=== PATIENT | female | born 1990 | race Caucasian/White ===

== ENCOUNTER 2020-07-08 00:42 | Outpatient (CLI) | payer OTHER, SELFPAY ==
[2020-07-08 18:38] LABS: SARS-CoV-2 RNA PCR Negative
== END 2020-07-08 00:43 | disposition home or self-care (01) ==
LOC: ANHCOVIDDT 00:43
PROVIDERS: PCP Internal Medicine; Visit Provider Obstetrics & Gynecology
DX: Z01.812 Encounter for preprocedural laboratory examination (principal); Z20.822 Contact with and (suspected) exposure to COVID-19
CPT/HCPCS: C9803; U0003

== ENCOUNTER 2020-07-11 01:06 | Day surgery (SDC) | payer OTHER, SELFPAY ==
[2020-06-28 16:03] VITALS: BMI 26.8
[2020-07-11] VITALS (9 sets, daily range): BP systolic 93–123; BP diastolic 60–80; PULSE 55–80; RESP 14–16; TEMP 36.1–36.6; O2SAT 97–100; BMI 27.4
--- NOTE | 2020-07-11 13:10 | WPDANESEPPF ---
Anes - Initial Pre Proc Eval Procedure: Operation Date: 07/11/20 13:30 Proposed Procedures p Diagnostic Laparoscopy - Concepcion Meza MD Date/Time: 07/11/20 13:10 Surgeon: Concepcion Meza MD Pre Op Diagnosis: pelvic and perineal pain Patient Data Age: 29 Gender: F Height: 5 ft 8 in Weight: 81.8 kg Allergies Allergy/AdvReac Type Severity Reaction Status Date / Time amoxicillin Allergy Unknown face swells Verified 07/11/20 12:54 Penicillins Allergy Unknown face swells Verified 07/11/20 12:54 Home Medications Medication Instructions Recorded Confirmed Type No Home Medications 06/28/20 07/11/20 History Patient hx anesthesia problems: none Family hx anesthesia problems: none [facility] Past Medical History Medical History (Updated 07/11/20 @ 13:10 by Andrea Garcia MD) Overweight Surgical History Surgical History (Updated 07/11/20 @ 13:10 by Andrea Garcia MD) H/O arthroscopic knee surgery Social History Social History Smoking packs per day: 0.5 Smoking cigarettes per day: 10.0 Years smoked: 16 Smoking pack-years: 8.00 Alcohol intake: former Alcohol use details: SOCIAL DRINKER IN PAST Substance use: current Substance use type: marijuana Other substance usage details: SMOKES MARIJUANA RARELY Living arrangements: with family Additional living arrangements comments: CHILDREN WITH PT SOMETIMES Spiritual care concerns: No Anes - Eval Final PreProcedure Day of Procedure 07/11/20 13:10 Patient weight: overweight Heart: regular rate and rhythm Lungs: clear to auscultation Airway: Mallampati scale class II Neurological: alert and oriented Last oral intake: >/= 8 hours ASA classification: II Emergent: no Anesthetic plan: proceed Anesthesia type and monitoring: general ETT and standard monitoring Informed Consent: The patient's anesthetic plan and its attendant risks and benefits were discussed with the patient/family/POA. Questions were solicited and answers provided to the satisfaction of the patient/family/POA.
[2020-07-11] MEDS: ACETAMINOPHEN 500 MG TABLET 1000 MG PO (13:26)
[2020-07-11] MEDS: LACTATED RINGERS 1,000 ML 30 ML IV CONT ×3 (13:26→15:58)
[2020-07-11] MEDS: KETOROLAC 15 MG/ML VIAL (*BKC) IV PUSH (13:26)
--- NOTE | 2020-07-11 13:27 | SUR.PREOP ---
Dr. Garcia notified that patient has plastic nose ring in
--- NOTE | 2020-07-11 13:30 | WPDHPUPDATE1 ---
History and Physical Update Update Date/Time: 07/11/20 13:30 History and Physical has been reviewed, including an updated exam of the patient. There are NO changes in the patient's condition. Risks, benefits, and alternatives have been discussed and questions answered. Patient agrees to proceed with procedure.
--- NOTE | 2020-07-11 15:25 | P.OP_ITS ---
Procedure Note - Detailed Date of procedure: 07/11/20 Pre-op diagnosis: pelvic and perineal pain Procedure performed: Description of procedure: The patient was taken the operating room. She was prepped and draped in the dorsal lithotomy position after induction of general anesthesia. A 5 mm left upper quadrant incision was made in the abdominal skin with a scalpel. A 5 mm trocar was inserted the intra-abdominal cavity under direct visualization of the scope. A 5 mm left lower quadrant incision was made with the scalp on the abdominal skin and a 5 mm trocar was inserted the intra- abdominal cavity under direct visualization of the scope. A 5 mm infraumbilical incision was made with scalpel and a 5 mm trocar was inserted into the intra- abdominal cavity under direct visualization of the scope. The ovaries were suspended using a Kyle-Uriel Endo Close. In the lower quadrants of the abdomen in the suprapubic area as the endo-close needle was passed through the abdominal wall with a 0 Vicryl fixed to the needle. The needle was passed through the ovary. The needle with suture was then withdrawn and the suture was held in place with a hemostat along the outer surface of the abdomen. This was done in identical fashion on both sides. A DULCE manipulator was placed in the intrauterine cavity using a speculum and tenaculum. The peritoneum in the posterior cul-de-sac was then removed on the left side. The ureter was dissected out from the pelvic brim down to the ureter the uterine artery. The peritoneum from the suspensory ligament of the ovary to the rectum condyloma in the cervix to the pelvic brim was removed. This down with sharp and blunt dissection using cautery to temporize any bleeding areas. The peritoneum was taken at the left lower quadrant trocar site. This took over an hour to perform this resection of endometriosis. Endometriosis was removed in 2 spots from the posterior cul-de-sac near the rectum between the rectum and the uterus. This was done with sharp and blunt dissection using cautery to make it hemostatic. Endometriosis in the right alexander pelvis was then cauterized. With identification of the ureter at met various places on the right hemipelvis were cauterized/fulgurated with bipolar cautery. The sutures holding the ovaries up were removed. Interceed was placed over the left side the posterior pelvis. Pelvis was hemostatic. The pelvis was previously irrigated with copious amounts of normal saline. The pneumoperitoneum was reduced. The trocars were removed. The patient was taken recovery room stable condition. Sponge lap and needle counts were correct x2. Anesthesia: GETA Surgeon: Concepcion Meza MD Estimated blood loss (mL): 20 Drains: No Packing: No Complications: No immediate complications Condition: stable Disposition: PACU Findings: Endometriosis throughout the posterior cul-de-sac. Ovaries appeared normal. Uterus appeared normal. Patient was status post tubal ligation.
[2020-07-11] MEDS: fentaNYL CITRATE INJ (*CRX) 100 MCG/2 ML VIAL 25 MCG IV PUSH ×8 (15:40→16:16)
[2020-07-11] MEDS: MIDAZOLAM HCL (*CRX) 2 MG/2 ML VIAL 1 MG IV PUSH (15:58)
[2020-07-11] MEDS: oxyCODONE HCL (*CRX) 5 MG TAB IR PO (16:51)
== END 2020-07-11 17:52 | disposition home or self-care (01) ==
PROVIDERS: Visit Provider Obstetrics & Gynecology
PROC: (CPT 49320; principal; 2020-07-11 13:30)
DX: N80.3 Endometriosis of pelvic peritoneum (principal); R10.2 Pelvic and perineal pain; N80.0 Endometriosis of uterus; N73.6 Female pelvic peritoneal adhesions (postinfective); K66.8 Other specified disorders of peritoneum; Z87.891 Personal history of nicotine dependence; F12.90 Cannabis use, unspecified, uncomplicated
CPT/HCPCS: 58662; 88305; A9270; J0330; J1100; J1885; J2250; J2405; J2704; J2710; J3010; J7030; J7120

== ENCOUNTER 2020-08-02 11:38 | Emergency (ER) | payer OTHER, SELFPAY ==
[2020-08-02 11:44] VITALS: BP 121/73; PULSE 64; RESP 18; TEMP 37; O2SAT 98
--- NOTE | 2020-08-02 12:11 | ED.WOUNDLAC ---
HPI - Wound/Laceration General Chief Complaint: Wound/Laceration Stated Complaint: left 3rd finger laceration Time Seen by Provider: 08/02/20 11:50 Source: patient and RN notes reviewed Mode of arrival: ambulatory Limitations: no limitations History of Present Illness HPI narrative: Patient presents today with a laceration to her left third finger that was sustained 1 hour prior to arrival on the lid of a metal can that was in her trash can. States she had a tetanus vaccine approximately 1 year ago. Wound was thoroughly cleaned and dressed with Steri-Strips and a dressing by nurse neighbor prior to arrival. Denies numbness or tingling. Related Data Home Medications Medication Instructions Recorded Confirmed No Home Medications 08/02/20 08/02/20 Allergies Allergy/AdvReac Type Severity Reaction Status Date / Time amoxicillin Allergy Swelling Verified 08/02/20 11:53 Penicillins Allergy Swelling Verified 08/02/20 11:53 Review of Systems Review of Systems: Narrative: CONSTITUTIONAL: Denies body aches, fever, chills, or sweats. EYES: Denies visual changes, redness, or discharge. ENT: Denies rhinorrhea, congestion, sore throat, or otalgia. CARDIOVASCULAR: Denies chest pain, palpitations, or edema. RESPIRATORY: Denies cough or dyspnea. GASTROINTESTINAL: Denies abdominal pain, nausea, vomiting, or diarrhea. GENITOURINARY: Denies dysuria or hematuria. SKIN: Denies rash, itching. + Laceration to left third finger MUSCULOSKELETAL: Denies back pain, joint pain, or myalgia. NEUROLOGIC: Denies headache, numbness, tingling, or weakness. PSYCH: Denies depression or anxiety. PMFSH Comments At time of signature, I have reviewed and agree with nursing past medical, surgical, social and family history unless otherwise noted. Please see nursing chart for further information. There is no relevant family history pertinent to the presenting complaint Exam Narrative: Exam Narrative: GENERAL: Well-appearing, well-nourished, and in no acute distress. HEAD: Normocephalic, atraumatic. EYES: EOMI. No redness or drainage. Conjunctivae normal. ENT: Mucous membranes pink and moist. NECK: Normal AROM. CHEST: No respiratory distress. EXTREMITIES: Normal range of motion. No edema. SKIN: Warm, dry, no rash. Capillary refill normal. Normal skin turgor. 1.5 cm partial-thickness linear laceration to the palmar aspect of the left third finger, distal phalanx. Distal sensation intact. Capillary refill normal. Full AROM. Scant active bleeding. NEURO: No focal deficits. Alert and oriented x3. Gait steady. PSYCH: Normal affect. No signs of depression or anxiety. Course Vital Signs Vital signs: Vital Signs Temperature 98.6 F 08/02/20 11:44 Pulse Rate 64 08/02/20 11:44 Respiratory Rate 18 08/02/20 11:44 Blood Pressure 121/73 08/02/20 11:44 Pulse Oximetry 98 08/02/20 11:44 Temperature 98.6 F 08/02/20 11:44 Pulse Rate 64 08/02/20 11:44 Respiratory Rate 18 08/02/20 11:44 Blood Pressure 121/73 08/02/20 11:44 Pulse Oximetry 98 08/02/20 11:44 Reviewed. Pt has been instructed to follow up with her PCP regarding her elevated blood pressure today. Procedures Laceration Laceration 1: Date: 08/02/20 Time: 12:13 Site: upper extremity (Left third finger) Side (If applicable): left Size (cm): 1.5 Description: linear Depth: simple, single layer ====== Skin Level ====== Skin layer closed with: dermabond and steri strips (3) ====== Subcutaneous Layer ====== ====== Muscle Layer ====== ====== Tendon Layer ====== Dressing: Previously applied steristrips removed to examine laceration. New steristrips and glue applied by MANAGER OFFICE. Finger splint applied by tech. MDM - Wound/Laceration Differential Diagnosis Differential diagnosis: Likely laceration and avulsion of skin Critical Care Time Critical Care Time Critical Care Time: No
== END 2020-08-02 12:24 | disposition home or self-care (01) ==
PROVIDERS: Emergency Provider Nurse Practitioner; PCP Nurse Practitioner Family
DX: S61.213A Laceration without foreign body of left middle finger without damage to nail, initial encounter (principal); W26.8XXA Contact with other sharp object(s), not elsewhere classified, initial encounter; N80.9 Endometriosis, unspecified
CPT/HCPCS: 12001; 99212; G0463

== ENCOUNTER 2021-05-26 10:16 | Emergency (ER) | payer OTHER, SELFPAY | END 2021-05-26 11:47 | disposition left against medical advice (07) | LOC: EXPBETH 10:19 | PROVIDERS: Emergency Provider Nurse Practitioner | DX: Z53.21 Procedure and treatment not carried out due to patient leaving prior to being seen by health care provider (principal) | CPT/HCPCS: 99199 ==

== ENCOUNTER 2021-08-24 08:26 | Emergency (ER) | payer OTHER, SELFPAY ==
[2021-08-24 08:32] VITALS: BP 115/80; PULSE 100; RESP 16; TEMP 37.3; O2SAT 97
--- NOTE | 2021-08-24 08:49 | ED.URI ---
HPI - URI/Sore Throat General Chief Complaint: Upper Respiratory Infection Stated Complaint: Sore Throat/Cough Time Seen by Provider: 08/24/21 08:38 Source: patient and RN notes reviewed Mode of arrival: ambulatory Limitations: no limitations History of Present Illness HPI Narrative: Patient presents today complaining of sore throat, cough, fever, headache since yesterday. Denies any sick contacts. She has not tried any wcyj-fer-[id number] medication for symptoms prior to arrival. She had COVID-19 1 month ago. She has not received a flu or COVID-19 vaccine. MD elicited complaint: fever, cough and sore throat Related Data Home Medications Medication Instructions Recorded Confirmed No Home Medications 08/02/20 08/24/21 Allergies Allergy/AdvReac Type Severity Reaction Status Date / Time amoxicillin Allergy Unknown face swells Verified 08/24/21 08:43 Penicillins Allergy Unknown face swells Verified 08/24/21 08:43 Review of Systems Review of Systems: CONSTITUTIONAL: Denies body aches, chills, or sweats.+ Fever EYES: Denies visual changes, redness, or discharge. ENT: Denies rhinorrhea, congestion, or otalgia.+ Throat CARDIOVASCULAR: Denies chest pain, palpitations, or edema. RESPIRATORY: Denies dyspnea.+ Cough GASTROINTESTINAL: Denies abdominal pain, nausea, vomiting, or diarrhea. GENITOURINARY: Denies dysuria or hematuria. SKIN: Denies rash, itching, or wounds. MUSCULOSKELETAL: Denies back pain, joint pain, or myalgia. NEUROLOGIC: Denies numbness, tingling, or weakness.+ Headache PSYCH: Denies depression or anxiety. PMFSH Past Medical History Medical History (Updated 08/24/21 @ 09:04 by Opal Ruano, [facility], ) Overweight Surgical History Surgical History (Updated 08/24/21 @ 08:51 by Opal Ruano, [facility], ) H/O arthroscopic knee surgery H/O tubal ligation Social History Social History Smoking packs per day: 0.5 Smoking cigarettes per day: 10.0 Years smoked: 16 Smoking pack-years: 8.00 Alcohol intake: former Alcohol use details: SOCIAL DRINKER IN PAST Substance use: current Substance use type: marijuana Other substance usage details: SMOKES MARIJUANA RARELY Additional living arrangements comments: CHILDREN WITH PT SOMETIMES Spiritual care concerns: No Comments At time of signature, I have reviewed and agree with nursing past medical, surgical, social and family history unless otherwise noted. Please see nursing chart for further information. There is no relevant family history pertinent to the presenting complaint Exam Narrative: GENERAL: Well-appearing, well-nourished, and in no acute distress. HEAD: Normocephalic, atraumatic. EYES: EOMI. No redness or drainage. Conjunctivae normal. ENT: Mucous membranes pink and moist. Nares clear. No rhinorrhea. TMs normal bilaterally. Throat mildly erythematous without edema or exudate. Uvula midline. NECK: Normal AROM. Supple. No lymphadenopathy. CHEST: No respiratory distress. Clear to auscultation. HEART: Regular rate and rhythm. No murmur appreciated. Normal peripheral pulses. EXTREMITIES: Normal range of motion. No edema. SKIN: Warm, dry, no rash. Capillary refill normal. Normal skin turgor. NEURO: No focal deficits. Alert and oriented x3. Gait steady. PSYCH: Normal affect. No signs of depression or anxiety. Course Course Level of Care: Express Care Visit Vital Signs Vital signs: Vital Signs Temperature 99.2 F 08/24/21 08:32 Pulse Rate 100 08/24/21 08:32 Respiratory Rate 16 08/24/21 08:32 Blood Pressure 115/80 08/24/21 08:32 Pulse Oximetry 97 08/24/21 08:32 Temperature 99.2 F 08/24/21 08:32 Pulse Rate 100 08/24/21 08:32 Respiratory Rate 16 08/24/21 08:32 Blood Pressure 115/80 08/24/21 08:32 Pulse Oximetry 97 08/24/21 08:32 Reviewed MDM - URI/Sore Throat Differential Diagnosis Differential diagnosis: Likely up
== END 2021-08-24 09:09 | disposition home or self-care (01) ==
PROVIDERS: Emergency Provider Nurse Practitioner
DX: J02.9 Acute pharyngitis, unspecified (principal); J06.9 Acute upper respiratory infection, unspecified; Z87.891 Personal history of nicotine dependence; Z86.16 Personal history of COVID-19
CPT/HCPCS: 87081; 87880; 99213; G0463

== ENCOUNTER 2021-10-20 12:52 | Emergency (ER) | payer OTHER, SELFPAY ==
[2021-10-20 12:56] VITALS: BP 118/86; PULSE 80; RESP 16; TEMP 36.8; O2SAT 99
[2021-10-20 13:06] VITALS: BP 118/86; PULSE 80; RESP 16; TEMP 36.8; O2SAT 99
--- NOTE | 2021-10-20 13:08 | ED.URI ---
HPI - URI/Sore Throat General Chief Complaint: Upper Respiratory Infection Stated Complaint: Cough/Sore Throat Time Seen by Provider: 10/20/21 13:08 Source: patient, RN notes reviewed and old records reviewed Mode of arrival: ambulatory Limitations: no limitations History of Present Illness HPI Narrative: 31 year old female who presents to [facility] care with complaints of 4 day history of scratchy throat, cough with expectoration of green phlegm, nasal drainage of green mucous also, and also now today hoarseness. Patient reports that she took some allergy medication but has not taken any decongestants. Patient reports no fevers, chills or sweats, denies any shortness of breath.Patient reports that she was treated for strep throat one month ago with antibiotic.Patient report no flu shot or COVID vaccinations, had COVID in July of 2021. MD elicited complaint: cough, sore throat, rhinorrhea and nasal congestion Onset (ago): day(s) (4) Consistency: progressively worsening Description of mucous: green Able to tolerate fluids by mouth: Yes Related Data Allergies Allergy/AdvReac Type Severity Reaction Status Date / Time amoxicillin Allergy Unknown face swells Verified 10/20/21 13:05 Penicillins Allergy Unknown face swells Verified 10/20/21 13:05 Review of Systems Review of Systems: CONSTITUTIONAL: Denies fever, chills, or sweats. EYES: Denies visual changes, redness, or discharge. ENT: Positive for rhinorrhea, congestion, sore throat, no otalgia. CARDIOVASCULAR: Denies chest pain, palpitations, or edema. RESPIRATORY:Positive for cough denies dyspnea. GASTROINTESTINAL: Denies abdominal pain, nausea, vomiting, or diarrhea. GENITOURINARY: Denies dysuria or hematuria. SKIN: Denies rash or itching. MUSCULOSKELETAL: Denies back pain, joint pain, or myalgia. NEUROLOGIC: Denies headache, numbness, or weakness. PSYCHIATRIC:Positive for history of anxiety or depression. All systems reviewed & are unremarkable except as noted in HPI and below [facility] Past Medical History Medical History (Updated 10/21/21 @ 09:09 by Lissy Cazares NP) Anxiety and depression Bipolar 1 disorder COVID-19 July of 2021 Kidney stone Overweight Surgical History Surgical History H/O arthroscopic knee surgery H/O tubal ligation Social History Social History Smoking packs per day: 0.5 Smoking cigarettes per day: 10.0 Years smoked: 16 Smoking pack-years: 8.00 Alcohol intake: former Alcohol use details: SOCIAL DRINKER IN PAST Substance use: current Substance use type: marijuana Other substance usage details: SMOKES MARIJUANA RARELY Additional living arrangements comments: CHILDREN WITH PT SOMETIMES Spiritual care concerns: No Comments At time of signature, agree with nursing past medical, surgical, social and family history. There is no relevant family history pertinent to the presenting complaint Exam Narrative: GENERAL: Well-appearing, well-nourished, and in no acute distress. HEAD: Normocephalic, atraumatic. EYES: PERRLA and EOMI. ENT: Nares red with rhinorrhea no epistaxis. Mucous membranes moist.T's normal with good light reflex, throat red with no lesions or exudates,no tonsil enlargement. NECK: Supple.mo lymphadenopathy CHEST: Clear to auscultation. No respiratory distress.productive cough, SAO2 99% on room air no tachypnea or dyspnea. HEART: Regular rate and rhythm. No murmur heard. Normal peripheral pulses. ABDOMEN: Soft, nontender, nondistended, normal active bowel sounds. EXTREMITIES: Normal range of motion. No edema. SKIN: Warm, dry, no rash. NEURO: No focal deficits. Alert and oriented x3. Course Course Level of Care: Express Care Visit Vital Signs Vital signs: Vital Signs Temperature 36.8 C 10/20/21 12:56 Pulse Rate 80 10/20/21 12:56 Respiratory Rate 16 10/20/21 12:56 Blood Pressure 1
== END 2021-10-20 13:35 | disposition home or self-care (01) ==
PROVIDERS: Emergency Provider Registered Nurse
DX: J06.9 Acute upper respiratory infection, unspecified (principal); R05.9 Cough, unspecified; F17.210 Nicotine dependence, cigarettes, uncomplicated; Z86.16 Personal history of COVID-19
CPT/HCPCS: 87081; 87880; 99213; G0463

== ENCOUNTER 2022-03-23 11:25 | Outpatient (CLI) | payer OTHER, SELFPAY ==
--- NOTE | ~2022-03-23 | XR_ITS ---
EXAMINATION: XR wrist LT min 3V, XR wrist RT min 3V DATE: 03/23/2022 11:52 INDICATION: Tingling to the bilateral hands TECHNIQUE: 1. Posteroanterior, ulnar deviation, oblique, and lateral views of the left wrist were obtained. 2. Posteroanterior, ulnar deviation, oblique, and lateral views of the right wrist were obtained. COMPARISON: none FINDINGS: Normal alignment at the bilateral wrists. No fracture. Joint spaces are normal. There is scalloping a long the radial cortical margin of the radial styloid process at both wrists which can be seen in the setting of chronic de Quervain's tenosynovitis. Soft tissues are unremarkable. IMPRESSION: 1. Relatively symmetric scalloping at the bilateral radial styloid processes which can be seen in the setting of chronic de Quervain's tenosynovitis. Otherwise unremarkable bilateral wrist radiographs. Reviewed, dictated and finalized at location A. IMPRESSION: 1. Relatively symmetric scalloping at the bilateral radial styloid processes wh ich can be seen in the setting of chronic de Quervain's tenosynovitis. Otherwis e unremarkable bilateral wrist radiographs.
== END 2022-03-23 11:26 | disposition home or self-care (01) ==
PROVIDERS: PCP Nurse Practitioner Family; Visit Provider Nurse Practitioner Family
DX: G56.03 Carpal tunnel syndrome, bilateral upper limbs (principal)
CPT/HCPCS: 73110

== ENCOUNTER 2022-08-08 00:38 | Day surgery (SDC) | payer OTHER, SELFPAY ==
[2022-07-30 12:22] VITALS: BMI 28.1
--- NOTE | 2022-07-30 12:28 | PC.NURSE ---
Report to the Outpatient Waiting Room, entrance under the green pavilion located off [facility], at time 6:30 on date 08/08/22. Planned Procedure Time: 8:30. Time changes happen often and if your time is changed the preop area will call you the afternoon before. - You and your visitor will be asked to self-screen and do not enter if you have any COVID symptoms. - Only one visitor is requested with a max of two and NO children visitors are allowed at this time. - The patient visitor may be requested to leave or wait in car when not with patient due to distancing restrictions. - A mask is optional within the hospital. Patients may have clear liquids (water, carbonated beverages, clear teas, apple juice) until 3 hours prior to surgery (5:30) with a maximum of 20 ounces. - No food from midnight until time of surgery Take the following medications with a SIP of water the morning of surgery: BUPROPION Medications to discontinue per physician: N/A Date to take last dose: N/A Please no make-up, nail new zealander, hairspray, perfume, deodorant, or body powder the day of surgery. No jewelry (including any body piercings) or valuables the day of surgery, leave them at home. Please take a shower or bath the night before, or the morning of, surgery with an antibacterial soap. Wear comfortable, loose fitting clothing. - Jewelry must be removed prior to entering the operating room. Rings and piercings that are not removed may be cut off. - The hospital will not accept responsibility for valuables. - Please leave all valuables, including medications, at home the day of surgery. If you are going home after surgery, a licensed subway train driver must drive you home. - NO public transportation without another adult if you receive anesthesia. - We recommend that an adult stay with you for 24 hours following discharge. - We also recommend that you do not drive, make important decision, drink alcoholic beverages, or take any drugs that were not prescribed by your health care provider for at least 24 hours after your discharge time. Follow any additional instructions given to you from your surgeon. If you or anyone in your household have experienced Covid symptoms in the past week, please notify your surgeon or the nurse liaison at the phone number below for possible testing. Telephone instructions given to PT - JOSE HUTCHISON and asked if any additional questions and then verbalized understanding. Patient advised to call surgeon office or pre surgery nurse liaison [phone] if any additional questions.
[2022-08-08] VITALS (10 sets, daily range): BP systolic 102–127; BP diastolic 61–84; PULSE 49–71; RESP 12–18; TEMP 36.5–37.2; O2SAT 98–100
[2022-08-08] MEDS: LACTATED RINGERS 1,000 ML 30 ML IV CONT ×2 (06:56→12:51)
--- NOTE | 2022-08-08 07:43 | WPDANESEPPF ---
Anes - Initial Pre Proc Eval Procedure: Operation Date: 08/08/22 08:30 Proposed Procedures p Total Laparoscopic Hysterectomy with Bilateral Salpingo Oophorectomy - Concepcion Meza MD Date/Time: 08/08/22 07:43 Surgeon: Concepcion Meza MD Pre Op Diagnosis: pelvic pain Patient Data Age: 32 Gender: F Height: 1.73 m Weight: 80.55 kg Last Vital Signs Temp 36.6 C 08/08/22 06:24 Pulse 71 08/08/22 06:24 Resp 18 08/08/22 06:24 BP 127/80 08/08/22 06:24 Pulse Ox 100 08/08/22 06:24 O2 Del Method Room Air 08/08/22 06:24 Allergies Allergy/AdvReac Type Severity Reaction Status Date / Time amoxicillin Allergy Unknown face swells Verified 08/08/22 06:53 Penicillins Allergy Unknown face swells Verified 08/08/22 06:53 Home Medications Medication Instructions Recorded Confirmed Type bupropion HCl 75 mg tablet 75 mg PO DAILY 07/30/22 08/08/22 History hydroxyzine HCl 25 mg tablet 25 mg PO TID PRN Anxiety 08/08/22 08/08/22 History Patient hx anesthesia problems: none Family hx anesthesia problems: none Results Review: All pre-operative results and documents have been reviewed as part of the pre-operative evaluation. [facility] Past Medical History Medical History (Updated 10/21/21 @ 09:09 by Lissy Cazares NP) Anxiety and depression Bipolar 1 disorder COVID-19 July of 2021 Kidney stone Overweight Surgical History Surgical History H/O arthroscopic knee surgery H/O tubal ligation Social History Social History Smoking packs per day: 0.5 Smoking cigarettes per day: 10.0 Years smoked: 15 Smoking pack-years: 7.50 Smoking status: Current every day smoker Tobacco type: cigarettes Alcohol intake: never Alcohol use details: SOCIAL DRINKER IN PAST Substance use: current Substance use type: marijuana Other substance usage details: SMOKES MARIJUANA RARELY Living arrangements: with family Additional living arrangements comments: CHILD Spiritual care concerns: No Anes - Eval Final PreProcedure Day of Procedure 08/08/22 07:43 Patient weight: overweight Heart: regular rate and rhythm Lungs: clear to auscultation Airway: Mallampati scale class II Neurological: alert and oriented Last oral intake: >/= 8 hours ASA classification: II Emergent: no Anesthetic plan: proceed Anesthesia type and monitoring: general ETT and standard monitoring Results Review: All pre-operative results and documents have been reviewed as part of the pre-operative evaluation. Informed Consent: The patient's anesthetic plan and its attendant risks and benefits were discussed with the patient/family/POA. Questions were solicited and answers provided to the satisfaction of the patient/family/POA.
[2022-08-08] MEDS: KETOROLAC 15 MG/ML VIAL (*BKC) IV PUSH (07:46)
[2022-08-08] MEDS: ACETAMINOPHEN 500 MG TABLET 1000 MG PO (07:46)
--- NOTE | 2022-08-08 08:31 | SUR.PREOP ---
patient updated on time delay
--- NOTE | 2022-08-08 09:39 | WPDHPUPDATE1 ---
History and Physical Update Update Date/Time: 08/08/22 09:39 History and Physical has been reviewed, including an updated exam of the patient. There are NO changes in the patient's condition. Risks, benefits, and alternatives have been discussed and questions answered. Patient agrees to proceed with procedure.
[2022-08-08] MEDS: ceFAZolin 2 GM/D5W 50 ML 2 GM/50 ML BAG IVPB (09:47)
[2022-08-08] MEDS: ceFAZolin SODIUM 1 GM VIAL (10:50)
[2022-08-08] MEDS: fentaNYL CITRATE INJ (*CRX) 100 MCG/2 ML VIAL 25 MCG IV PUSH ×4 (12:58→13:07)
--- NOTE | 2022-08-08 13:07 | W.PM.PROC2 ---
Procedure Note - Detailed Date of Procedure 08/08/22 Pre-op Diagnosis pelvic pain, endometriosis Post-op Diagnosis Same ( with pelvic adhesions) Procedure Performed Total laparoscopic hysterectomy and bilateral salpingo-oophorectomy. Adhesiolysis-1 hour Surgeon Concepcion Meza MD Anesthesia General Indications pelvic pain Findings dense pelvic adhesions between the left ovary and the pelvic sidewall and the ureter. The ovary and ureter were in close proximity with dense scar tissue connecting them. entire left adnexa was adherent to the left pelvic sidewall. Otherwise normal pelvic anatomy. Description of Procedure This patient was taken to the operating room. She was prepped and draped in the dorsal lithotomy position after induction of general anesthesia. The uterine manipulator and Colette cup were placed. This was done with a speculum and tenaculum. The speculum was placed. The cervix was grasped with a tenaculum. The stay sutures were placed at 3 and 9:00 a.m.. The stay sutures of 0 Vicryl were brought through the appropriately sized Colette cup. The tip of the DULCE manipulator was placed in the intrauterine cavity. The cup was slid into place around the cervix and into the fornices. It was locked into place. The sutures were then wrapped around the handle and tied under tension. A 5 mm skin incision was made in the left upper quadrant the abdomen. A 5 mm trocar was inserted into the intrauterine cavity under direct visualization of the scope. Pneumoperitoneum was achieved. A left lower quadrant 11 mm incision was made with scalpel. An 11 mm trocar was inserted into the anterior abdominal cavity under direct visualization the scope. A 5 mm infraumbilical incision was made with a scalpel and a 5 mm trocar was inserted the intra-abdominal cavity under direct visualization of the scope. Bilateral ureteral lysis was performed. This was done from the pelvic brim down to the uterine artery. On the left side detailed length the adhesiolysis was performed. 1 hour of adhesiolysis was required to separate the ovary from the left pelvic sidewall and dissect out the ureter. of adhesiolysis was performed sharp and blunt dissection using LigaSure, cautery, scissors. This was done with careful dissection using sharp and blunt dissection. The infundibulopelvic ligaments were isolated after identification of the ureters bilaterally. These infundibulopelvic ligaments were cauterized and transected with LigaSure cautery. The para ovarian tissue was cauterized and transected with LigaSure cautery bilaterally. Moving around the ovary into the broad ligament the tissue was cauterized transected with LigaSure cautery. The round ligaments were cauterized transected with LigaSure cautery this was all done in a bilateral fashion. In a stepwise fashion along the lateral aspects of the uterus the round ligament and broad ligaments were cauterized transected down to the level of the uterine arteries. A bladder flap was created in the bladder was moved distally to the end of the cervix and over the Colette cup. The bilateral uterine arteries were cauterized and transected. Colpotomy was then performed. In a circumferential fashion the vagina was transected using unipolar cautery. The incision was made down on the Colette cup. The uterus, cervix, fallopian tubes and ovaries were taken out through the vagina. A pneumo occluder was placed in the vagina. The vaginal cuff was closed with a 0 V lock suture in a running fashion. The pelvis was irrigated with copious amounts antibiotic irrigation. The ureters were again examined and found to be intact and flowing freely under the uterine arteries into the bladder. The bladder was intact. It was examined directly. The vagina was irrigated with Betadine solution after removal of the Pneumo occluder. The patient was taken to recovery room. She was stable condition. Sponge lap and needle counts were correct x2. D
[2022-08-08] MEDS: diphenhydrAMINE HCl INJ 50 MG/ML VIAL 25 MG IV PUSH (13:13)
[2022-08-08] MEDS: DEXTROSE 5%/0.45% SOD CHL 1,000 ML 125 ML IV CONT (14:30)
[2022-08-08] MEDS: HYDROcodone/acetaminophen (*CRX) 10-325 MG TABLET 1 TAB PO ×3 (14:30→22:55)
[2022-08-08] MEDS: KETOROLAC 30 MG/ML VIAL (*BKC) IV PUSH (14:30)
[2022-08-08] MEDS: ONDANSETRON INJ 4 MG/2 ML VIAL IV PUSH (18:20)
[2022-08-08] MEDS: IBUPROFEN 600 MG TABLET PO (22:55)
[2022-08-09] MEDS: IBUPROFEN 600 MG TABLET PO (04:31)
[2022-08-09] MEDS: HYDROcodone/acetaminophen (*CRX) 10-325 MG TABLET 1 TAB PO ×2 (04:31→07:29)
[2022-08-09 04:35] VITALS: BP 111/65; PULSE 60; RESP 18; TEMP 36.6; O2SAT 100
[2022-08-09] MEDS: buPROPion HCL 75 MG TABLET PO (07:29)
[2022-08-09 08:34] VITALS: BP 100/59; PULSE 64; RESP 18; TEMP 36.7; O2SAT 98
--- NOTE | 2022-08-09 08:44 | PM.GYNPNOP ---
TEST DRILLER - A/P Postoperative Procedures: Procedures Operation Date: 08/08/22 08:30 Actual Procedure Side Surgeon p Total Laparoscopic Hysterectomy with Bilateral Salpingo Oophorectomy, Adhesiolysis Bilateral Concepcion Meza MD Postoperative day: 1 Postoperative status: doing well Postoperative plan: see orders Time Spent With Patient Time: Total time spent is greater than 50% in coordination of care (as documented) at patient's floor/unit and/or counseling patient: Time with patient: less than 15 minutes TEST DRILLER- PN:Subj Post-Op Subjective Date/time seen: 08/09/22 08:44 Subjective: patient reports feeling better, patient has no complaints and pain is well controlled Exam Const: General: healthy appearing, comfortable and no acute distress Resp: Auscultation: clear to auscultation bilaterally, no rales, no rhonchi and no wheezes Cardio: Rate: regular rate Heart sounds: no click, no murmurs and no rubs GI: Inspection: non-distended Auscultation: normal bowel sounds Extrem: General: normal to inspection, no pedal edema and no calf tenderness TEST DRILLER - PN: Obj Data Vital Signs Vital Signs: Vital Signs - 24 hr 08/08/22 12:51 08/08/22 13:20 08/08/22 13:35 Temperature 97.7 F Pulse Rate 58 L 52 L 53 L Respiratory Rate 14 12 14 Blood Pressure 117/69 109/68 113/70 Pulse Oximetry 100 100 100 Oxygen Delivery Simple Face Mask Room Air Room Air Oxygen Flow Rate 6 08/08/22 13:50 08/08/22 14:00 08/08/22 13:05 Temperature 99.0 F Pulse Rate 54 L 57 L 49 L Respiratory Rate 14 14 12 Blood Pressure 116/74 113/76 109/67 Pulse Oximetry 100 98 100 Oxygen Delivery Room Air Room Air Simple Face Mask Oxygen Flow Rate 6 08/08/22 14:15 08/08/22 14:15 08/08/22 19:44 Temperature 98.3 F 98.8 F Pulse Rate 57 L 57 L 68 Respiratory Rate 16 16 18 Blood Pressure 121/84 109/67 Pulse Oximetry 100 100 98 Oxygen Delivery Room Air Oxygen Flow Rate 08/08/22 19:44 08/08/22 23:44 08/08/22 23:44 Temperature 99 F Pulse Rate 68 64 64 Respiratory Rate 18 18 18 Blood Pressure 102/61 Pulse Oximetry 98 98 98 Oxygen Delivery Room Air Room Air Oxygen Flow Rate 08/09/22 04:35 08/09/22 04:35 08/09/22 08:34 Temperature 98 F 98.1 F Pulse Rate 60 60 64 Respiratory Rate 18 18 18 Blood Pressure 111/65 100/59 L Pulse Oximetry 100 100 98 Oxygen Delivery Room Air Oxygen Flow Rate Intake/Output Intake/Output: Intake & Output 08/06/22 08/07/22 08/08/22 08/09/22 23:59 23:59 23:59 23:59 Intake Total 650 Output Total 810 Balance -160 Meds/Results Medications: Active Medications Generic Name Dose Route Start Last Admin Trade Name Freq PRN Reason Stop Dose Admin Hydrocodone Bitart/Acetaminophen 1 tab 08/08/22 14:06 Hydrocodone/Acetaminophen (*Crx) 5-325 Mg Tablet PO Q3H PRN Pain Rated 5 or Less Hydrocodone Bitart/Acetaminophen 1 tab 08/08/22 14:06 08/09/22 07:29 Hydrocodone/Acetaminophen (*Crx) 10-325 Mg Tablet PO 1 tab Q3H PRN Administration Pain Rated 6 or Greater Bupropion HCl 75 mg 08/09/22 09:00 08/09/22 07:29 Bupropion Hcl 75 Mg Tablet PO 75 mg DAILY PABLO Administration Hydroxyzine HCl 25 mg 08/08/22 14:06 Hydroxyzine Hcl 25 Mg Tablet PO TID PRN Anxiety Dextrose/Sodium Chloride 1,000 mls @ 125 mls/hr 08/08/22 14:06 08/08/22 19:35 Dextrose 5% Sodium Chloride 0.45% IV CONT 0 mls/hr .Q8H PABLO Infusion Ibuprofen 600 mg 08/08/22 14:06 08/09/22 04:31 Ibuprofen 600 Mg Tablet PO 600 mg Q6H PRN Administration Cramping Ketorolac Tromethamine 30 mg 08/08/22 14:06 08/08/22 14:30 Ketorolac 30 Mg/Ml Vial (*Bkc) IV PUSH 08/13/22 14:05 30 mg Q6H PRN Administration Pain Rated 4-6 Naloxone HCl 0.1 mg 08/08/22 14:06 Naloxone Hcl 0.4 Mg/Ml Vial IV PUSH Q2M PRN Respiratory rate less than 10 Ondansetron HCl 4 mg 08/08/22 14:06 08/08/22 18:20 Ondansetron Inj 4 Mg/2 Ml Vial
--- NOTE | 2022-08-09 09:04 | WPDANESPN ---
Anes - Prog Note Post-Op Date/Time: 08/09/22 09:04 Cardiovascular status: normal Respiratory status: normal Airway patency: baseline Mental status: baseline Post-Op hydration status: normal Vital Signs: Last Vital Signs Temp 98.1 F 08/09/22 08:34 Pulse 64 08/09/22 08:34 Resp 18 08/09/22 08:34 BP 100/59 L 08/09/22 08:34 Pulse Ox 98 08/09/22 08:34 O2 Del Method Room Air 08/09/22 04:35 O2 Flow Rate 6 08/08/22 13:05 Pain Score (VAS): 0 I/O: Intake & Output 08/08/22 08/09/22 08/09/22 23:59 07:59 15:59 Intake Total 400 Output Total 750 Balance -350 Post-procedural complaints: none Patient Feedback: Patient satisfied with anesthetic care.
--- NOTE | 2022-08-09 09:40 | PC.NURSE ---
Dawson Aguiar RN, has looked over and agrees with the charting for this patient that Chuy Cronin RN, has completed.
== END 2022-08-09 10:25 | disposition home or self-care (01) ==
LOC: ANHSURGERY 06:19 → ANHOB2 14:09
PROVIDERS: PCP Nurse Practitioner Family; Visit Provider Obstetrics & Gynecology
PROC: 0UT9FZZ Resection of Uterus, Via Natural or Artificial Opening With Percutaneous Endoscopic Assistance (ICD-10-PCS; CPT 58571; principal; 2022-08-08 08:30)
DX: N73.6 Female pelvic peritoneal adhesions (postinfective) (principal); R10.2 Pelvic and perineal pain; Z79.51 Long term (current) use of inhaled steroids
CPT/HCPCS: 58571; 36415; 86850; 86900; 86901; 88307; 99199; A9270; J0690; J1100; J1170; J1200; J1885; J2250; J2405; J2704; J2710; J3010; J7030; J7120

== ENCOUNTER 2022-10-08 12:38 | Emergency (ER) | payer OTHER, SELFPAY ==
[2022-10-08 13:47] VITALS: BP 103/58; PULSE 99; RESP 18; TEMP 37.1; O2SAT 99
--- NOTE | 2022-10-08 13:59 | PC.NURSE ---
Patient left department at 1351
== END 2022-10-08 13:55 | disposition left against medical advice (07) ==
LOC: ANHED 14:23
PROVIDERS: PCP Nurse Practitioner Family
DX: Z53.21 Procedure and treatment not carried out due to patient leaving prior to being seen by health care provider (principal)
CPT/HCPCS: 99199

== ENCOUNTER 2023-01-18 18:34 | Emergency (ER) | payer OTHER, SELFPAY ==
[2023-01-18 18:46] VITALS: BP 119/71; PULSE 73; RESP 16; TEMP 36.5; O2SAT 100
--- NOTE | 2023-01-18 19:00 | ED.URI ---
HPI - URI/Sore Throat General Chief Complaint: Upper Respiratory Infection Stated Complaint: Sore Throat Source: patient and RN notes reviewed History of Present Illness HPI Narrative: 32 yo F presents to urgent care with complaints of sore throat. Pt states she has been having an intermittent sore throat since she was hospitalized in December. Pt was intubated for a drug overdose on 12/24. Pt states she woke up on the but was not sure when she was extubated. Pt states she will sometimes feel that when she lies down, she gasps for air. Pt denies any fevers, chills, vomiting, SOB, or chest pain. Pt has been drinking teas and herbs without relief. Related Data Home Medications Medication Instructions Recorded Confirmed bupropion HCl 75 mg tablet 150 mg PO DAILY 07/30/22 01/18/23 aripiprazole 5 mg tablet 5 mg PO DAILY 01/18/23 01/18/23 escitalopram oxalate 10 mg tablet 10 mg PO DAILY 01/18/23 01/18/23 estradiol 2 mg tablet 2 mg PO DAILY 01/18/23 01/18/23 pregabalin 75 mg capsule 75 mg PO BID 01/18/23 01/18/23 Allergies Allergy/AdvReac Type Severity Reaction Status Date / Time amoxicillin Allergy Unknown face swells Verified 01/18/23 18:56 Penicillins Allergy Unknown face swells Verified 01/18/23 18:56 clindamycin Allergy Rash Verified 01/18/23 18:56 Review of Systems Review of Systems: CONSTITUTIONAL: Denies fever, chills, or sweats. EYES: Denies visual changes, redness, or discharge. ENT: sore throat CARDIOVASCULAR: Denies chest pain, palpitations, or edema. RESPIRATORY: Denies cough or dyspnea. GASTROINTESTINAL: Denies abdominal pain, nausea, vomiting, or diarrhea. GENITOURINARY: Denies dysuria or hematuria. SKIN: Denies rash or itching. MUSCULOSKELETAL: Denies back pain, joint pain, or myalgia. NEUROLOGIC: Denies headache, numbness, or weakness. Pertinent positives per HPI. [facility] Past Medical History Medical History (Updated 01/18/23 @ 19:17 by Melony Rendon, SHIMON) Anxiety and depression Bipolar 1 disorder COVID-July Kidney stone Overweight Surgical History Surgical History H/O arthroscopic knee surgery H/O tubal ligation Social History Social History Smoking packs per day: 0.5 Smoking cigarettes per day: 10.0 Years smoked: 15 Smoking pack-years: 7.50 Smoking status: Current every day smoker Tobacco type: cigarettes Alcohol intake: never Alcohol use details: SOCIAL DRINKER IN PAST Substance use: current Substance use type: marijuana Other substance usage details: SMOKES MARIJUANA RARELY Living arrangements: with family Additional living arrangements comments: CHILD Spiritual care concerns: No Comments At the time of my signature, I reviewed and agree with the nursing past medical, surgical, social, and family history. There is no relevant family history pertinent to the patient complaint. Exam Narrative: GENERAL: This is a well-nourished, well-developed patient, in no apparent distress. HEAD: normocephalic, atraumatic. EYES: Sclera clear/white. Vision is grossly intact. EARS: External ears normal, auditory canals clear and without drainage, TMs normal without perforation. Hearing grossly intact. NOSE: External nose normal with no obvious nasal discharge, nares without redness, no rhinorrhea. THROAT: Mucous membranes moist, posterior pharynx erythremic. Right tonsil 1+. no exudate noted. NECK: Neck supple, non-tender without lymphadenopathy, masses or thyromegaly. CARDIOVASCULAR: Regular rate and rhythm without murmurs, gallops, or rubs. RESPIRATORY: Clear to auscultation. Breath sounds equal bilaterally. No wheezes, rales, or rhonchi. No stridor noted. GASTROINTESTINAL: Abdomen soft, non-tender, nondistended. Bowel sounds are active. No hepato-splenomegaly, or palpable masses. No guarding. SKIN: warm, intact with no suspicious les
== END 2023-01-18 19:18 | disposition home or self-care (01) ==
PROVIDERS: Emergency Provider Nurse Practitioner Family; PCP Nurse Practitioner Family
DX: J02.9 Acute pharyngitis, unspecified (principal); F17.210 Nicotine dependence, cigarettes, uncomplicated; F17.290 Nicotine dependence, other tobacco product, uncomplicated; F41.9 Anxiety disorder, unspecified; F32.A Depression, unspecified; Z86.16 Personal history of COVID-19
CPT/HCPCS: 87081; 87880; 99213; G0463

== ENCOUNTER 2024-08-22 13:46 | Emergency (ER) | payer OTHER, SELFPAY ==
--- NOTE | ~2024-08-22 | XR_ITS ---
CHEST RADIOGRAPH, PA AND LATERAL CLINICAL HISTORY: cough, SOB, WHEEZING . COMPARISON: None TECHNIQUE: PA and lateral views of the chest. FINDINGS The cardiomediastinal silhouette is unremarkable. The lungs are clear. Visualized osseous structures and soft tissues are unremarkable. IMPRESSION: No focal infiltrate or effusion. Reviewed, dictated and finalized at location A. RMATION SYSTEMS COORDINATOR
--- OUTSIDE RECORDS SUMMARY | 2024-08-22 13:48 | XMS_ITS | Patient Health Summary ---
Author Organization [facility] Address [address] [place] [address] Care Team Providers Care Supervisor Tellers Name Role Phone Radha Deluna Primary Care Provider [phone] Note from [facility],non-owned Affiliates and Associated Physician Practices is amultiple site organization consisting of ambulatory clinics and hospital sitesin [place], [place], [place] and [place]. This disclosure is being madepursuant to the Care Everywhere program and may not contain all information available regarding this patient. Last updated 18.[facility] Social History Tobacco Use Types Packs/Day Years Used Date Smoking Tobacco: Never Assessed Sex and Gender Information Value Date Recorded Sex Assigned at Not on file Gender Identity Not on file Sexual Orientation Not on file Care Teams Supervisor Tellers Relationship Specialty Start Date End Date Radha Deluna APRN-CNP [address] [place] [id number] PCP - General 08/23/22
--- OUTSIDE RECORDS SUMMARY | 2024-08-22 13:48 | XMS_ITS | Clinical Summary ---
Author Organization [facility] Address [address] [place] [address] Care Team Providers Care Cycle Analyst Name Role Phone Radha Deluna SHIMON-MESSENGER COPY Primary Care Provider [phone] Source Comments [facility],non-owned Affiliates and Associated Physician Practices is amultiple site organization consisting of ambulatory clinics and hospital sitesin [place], [place], [place] and [place]. This disclosure is being madepursuant to the Care Everywhere program and may not contain all information available regarding this patient. Last updated 18.[facility] Social History Tobacco Use Types Packs/Day Years Used Date Smoking Tobacco: Never Assessed Sex and Gender Information Value Date Recorded Sex Assigned at Not on file Gender Identity Not on file Sexual Orientation Not on file Plan of Treatment Health Maintenance Due Date Last Done Comments PAP SMEAR 1989 HIV SCREENING 2004 HEPATITIS C SCREENING 07/21/2007 DTAP/TDAP/TD VACCINES (1 - Tdap) 2008 HEPATITIS B VACCINE (1 of 3 - 19+ 3-dose series) 2008 COVID-19 VACCINE ( - 2023-2 5 season) 2024 INFLUENZA VACCINE (#1) 2024 DEPRESSION SCREENING 07/08/2024 ZOSTER VACCINE (1 of 2) 2039 HIB VACCINE Aged Out No longer eligi ble based on patient's age to complete this topic HPV VACCINE Aged Out No longer eligi ble based on patient's age to complete this topic MENINGOCOCCAL (Group B) VACCINE Aged Out No longer eligible based on patient's age to complete this topic MENINGOCOCCAL VACCINE Aged Out No humaira leslye eligible based on patient's age to complete this topic PNEUMOCOCCAL VACCINE Aged Out No long er eligible based on patient's age to complete this topic Care Teams Cycle Analyst Relationship Specialty Start Date End Date Radha Deluna APRN-MESSENGER COPY [address] [place] [id number] PCP - General 08/23/22
--- OUTSIDE RECORDS SUMMARY | 2024-08-22 13:48 | XMS_ITS | Clinical Summary ---
Author Organization [facility] Address [address] [place] [address] Phone Care Team Providers Care Help Desk Analyst Name Role Phone Andra Alonso APRN, CNP Primary Care Provid er Elodia Bowman MD Unavailable Allergies Active Allergy Reactions Criticality Noted Date Comments Amoxicillin Hives 10/05/2015 Clindamycin Rash 06/06/2022 Penicillins Rash 06/06/2022 Medications fluticasone (FLONASE) 50 MCG/ACT Suspension 4 Active acyclovir (ZOVIRAX) 5 % OintmentIndicat ions:Cold sore Apply every 3 hours. Application Site: cold sore apply until resolved (Description and Location) 30 g 4 Active Additional Information Patient not taking.Reported on 06/20/2024 DULoxetine (CYMBALTA) [address] Naranjo tions:Bipolar 1 disorder (HCC),Endometri osis Take 1 Capsule by mouth daily. 90 Capsule 1 4 Active buPROPion (WELLBUTRIN) 150 MG XL tabletIndicatio ns:Bipolar 1 disorder (HCC) Take 1 Tablet by mouth every morning. 90 Tablet 1 4 Active ARIPiprazole (ABILIFY) 15 MG TabletIndicatio ns:Bipolar 1 disorder (HCC) Take 1 Tablet by mouth daily. 90 Tablet 1 4 Active pregabalin (LYRICA) 75 MG CapsuleIndicati ons:Endometrios is,Myalgia Take 1 Capsule by mouth 2 times daily. 60 Capsule 4 Active albuterol 108 (90 Base) MCG/ACT Aerosol Solution take 2 Puffs by inhalation every 6 hours as needed for Cough or Wheezing. 6.7 g 4 Active estradiol (ESTRACE) 2 MG Tablet Take 1 Tablet by mouth daily. Hazardous: Medication requires special safe handling and disposal. 90 Tablet 3 4 Active prazosin (MINIPRESS) 1 MG Capsule TAKE 1 CAPSULE BY MOUTH EVERY DAY AT BEDTIME FOR NIGHTMARES OR PTSD SYMPTOMS 4 Active albuterol 108 (90 Base) MCG/ACT Aerosol Solution take 2 Puffs by inhalation every 6 hours as needed for Wheezing or Cough. 8 g 4 Active Active Problems Problem Noted Date Diagnosed Date Intentional overdose 12/24/2022 06/03/2023 Dehiscence of operative wound 10/08/2022 Overview (06/03/2023): Added automatically from request for surgery [id number] Right foot sprain, initial encounter 11/25/2017 06/03/2023 Encounters Date Type Department Care Team Description 07/05/2024 1:43 PM DEVULCANIZER CHARGER - 07/05/2024 2:58 PM DEVULCANIZER CHARGER Emergency [facility] Emergency [address] [place] [id number] Nika Love, RIOS Acute bronchitis Discharge Disposition: Discharged to home or Selfcare 07/05/2024 Travel 06/20/2024 10:40 AM DEVULCANIZER CHARGER [facility] [place] [place] [phone] Latoya Negrete, CHILDREN'S ENTERTAINER, ELECTRIC METER REPAIRER APPRENTICE COVID-19 (Primary Dx); Sore throat Discharge Disposition: Discharged to home or Selfcare 06/20/2024 Travel from Last 3 Months Immunizations Immunization Administration Dates Next Due DTP Vaccine 02/20/1995, 3,01/12/1991,01/07,1989 Hepatitis A Vaccine 01/28/2019 Hepatitis B Vaccine, Pediatric/adolescent 11/10/1998,04/21/1998,02/20/1995 Hib Vaccine,unspecified Formulation 01/12/1991 Influenza Vaccine, Quadrivalent, PF 06/03/2023,1 MMR Vaccine 01/31/1994,01/12/1991 OPV 04/21/1998, 3,01/12/1991,01/07,1989 Pneumococcal conjugate PCV20 , polysaccharide [id number] conjugate, adjuvant, PF 06/03/2023 TDAP Vaccine 01/28/2019 Tetanus Toxoid, Unspecified Formulation 07/08/2010 Family History Medical History Relation Name Comments Bipolar Disorder Father Bipolar Disorder Half-Sister Relation Name Status Comments Brother Alive Father Half-Sister Alive Sister 1 Alive Sister 2 Alive Sister 3 Alive Social History Tobacco Use Types Packs/Day Years Used Date Smoking Tobacco: Former Cigarettes 0.5 15 Smokeless Tobacco: Never Alcohol Use Standard Drinks/Week Comments No 0 (1 standard drink = 0.6 oz pur e alcohol) [facility] MOD Systemsities Answer Date Recorded In the past 12 months has [employer], gas, oil, or water [email or web address] threatened to shut off services in your home? Patient declined 08/12/2023 Social Connection and Isolation Panel [NHANES] A nswer Date Recorded In a typical week, how many times do you talk on the phone with family, friends, or neighbors? Twice a week 08/12/2023 How often do you get togethe r with friends or relatives? Once a week 08/12/2023 How often do you attend protestant or taoism serv ices? Patient declined 08/12/2023 Do you belong to any clubs o r organizations such as protestant groups, unions, fraternal or athletic groups, or school groups? Patient declined 08/12/2023 How often do you attend meet ings of the clubs or organizations you belong to? Patient declined 08/12/2023 Are you , , di vorced, , never , or living with a partner? Never 08/12/2023 AUDIT-C Answer Date Recorded Q1: How often do you have a drink containing alc ohol? Monthly or less 08/12/2023 Q2: How many drinks containi ng alcohol do you have on a typical day when you are drinking? 1 or 2 08/12/2023 Q3: How often do you have si x or more drinks on one occasion? Less than monthly 08/12/2023 Overall Financial Resource Strain (CARDIA) Answe r Date Recorded How hard is it for you to pa y for the very basics like food, housing, medical care, and heating? Very hard 08/12/2023 PHQ-2 Answer Date Recorded Total Score - Questions 1-9 13 09/2023 [facility] - Occupational Stress Questionnaire Answer Date Recorded Do you feel stress - tense, restless, nervous, or anxious, or unable to sleep at night because your mind is troubled all the time - these days? Very much 08/12/2023 Exercise Vital Sign Answer Date Recorde d On average, how many days pe r week do you engage in moderate to strenuous exercise (like a brisk walk)? 7 days 08/12/2023 On average, how many minutes do you engage in exercise at this level? 60 min 08/12/2023 Hunger Vital Sign Answer Date Recorded Within the past 12 months, y ou worried that your food would run out before you got the money to buy more. Sometimes true Within the past 12 months, t he food you bought just didn't last and you didn't have money to get more. Sometimes true 11/2023 PRAPARE - Transportation Answer Date Re corded In the past 12 months, has l ack of transportation kept you from medical appointments or from getting medications? Yes 11/2023 In the past 12 months, has l ack of transportation kept you from meetings, work, or from getting things needed for daily living? Yes 08/12/2023 Housing Stability Vital Sign Answer Julio e Recorded In the last 12 months, was t here a time when you were not able to pay the mortgage or rent on time? Yes 08/12/2023 In the last 12 months, how many places have you lived? 5 08/12/2023 In the last 12 months, was t here a time when you did not have a steady place to sleep or slept in a longterm (including now)? Yes 08/12/2023 Education Answer Date Recorded What is the highest level of school you have completed or the highest degree you have received? 11th grade 06/03/2023 Sexually Active Control Partners Comments Not Currently Surgical Male Comments No Sex and Gender Information Value Date Recorded Sex Assigned at Not on file Legal Sex Female 11:47 PM CDT Gender Identity Not on file Sexual Orientation Not on file Last Filed Vital Signs Vital Sign Reading Time Taken Comments Blood Pressure 140/82 07/05/2024 2:57 PM DEVULCANIZER CHARGER Pulse 87 07/05/2024 2:57 PM DEVULCANIZER CHARGER Temperature 36.6 C (97.8 F) 07/05/2024 11:45 AM DEVULCANIZER CHARGER Respiratory Rate 20 07/05/2024 2:57 PM DEVULCANIZER CHARGER Oxygen Saturation 97% 07/05/2024 2:57 PM DEVULCANIZER CHARGER Inhaled Oxygen Concentration - - Weight 112 kg (247 lb) 07/05/2024 11:45 AM DEVULCANIZER CHARGER Height 170.2 cm (5' 7 ) 07/05/2024 11:45 AM DEVULCANIZER CHARGER Body Mass Index 38.69 07/05/2024 11:45 AM DEVULCANIZER CHARGER Plan of Treatment Upcoming Encounters Date Type Department Care Team (Late st Contact Info) Description 09/08/2024 1:00 PM DEVULCANIZER CHARGER Office Visit [facility] - Obstetrics & Gynecology [facility] [address] [place] [address] Adrien Juarez MD [address] [place] [address] 09/08/2024 1:45 PM DEVULCANIZER CHARGER Office Visit [facility] - Family Medicine [facility] [address] [place] [phone] Andra Alonso APRN, SAMEER [address] [phone] Health Maintenance Due Date Last Done Comments Hepatitis C Virus (HCV) Screening 1989 Influenza Immunization (#1) 2024 06/03/2023, 1 DTaP/Tdap/Td Immunization (7 - Td or Tdap) 01/28/2029 01/28/2019, 02/20/1995, 02/13/1993, Additional history exists Respiratory Syncytial Virus (RSV) Immunization (Adult) (1 - 1-dose 75+ series) 2064 Hepatitis B Immunization Completed 999, 04/21/1998, 02/20/1995 HPV/Cotest Discontinued 01/26/2020 Pneumococcal Immunization Combined Aged Out 06/03/2023 No longer eligible based on patient's age to complete this topic Cervical Cancer Screening (CCS) Discontinued Meningococcal Immunization (ACWY) Aged Out No longer eligible based on patient's age to complete this topic Pap Smear Discontinued Rotavirus Immunization Aged Out No lo nger eligible based on patient's age to complete this topic SARS-COV-2 Immunization Discontinued Goals Goal Patient Goal Type Associated Problems Recent Progress Patient-Stated? Author Psychological assessment Behavioral Health Doc Vieyra PSYD Note: Patient will participate fully in a psychological assessment to determine whether she meets the criteria for ASD or another condition. Procedures Procedure Name Priority Date/Time Associated Diagnosis Comments XR CHEST 2 VIEWS STAT 07/05/2024 12:1 9 PM DEVULCANIZER CHARGER RSV,SARS-COV-2,INFL UENZA A&B BY PCR STAT 07/05/2024 11:56 AM DEVULCANIZER CHARGER POC SARS-COV-2 BY MOLECULAR Routine 06/20/2024 11:26 AM DEVULCANIZER CHARGER Sore throat POC INFLUENZA A AND B BY MOLECULAR Routine 06/20/2024 11:22 AM DEVULCANIZER CHARGER Sore throat POC GROUP A STREP BY MOLECULAR Routine 06/20/2024 10:59 AM DEVULCANIZER CHARGER Sore throat from Last 3 Months Results * XR CHEST 2 VIEWS (07/05/2024 12:19 PM DEVULCANIZER CHARGER) Anatomical Region Laterality Modality Chest N/A Digital Radiogra phy 07/05/2024 1:27 PM DEVULCANIZER CHARGER Impressions 07/05/2024 1:29 PM DEVULCANIZER CHARGER IMPRESSION: No acute cardiopulmonary abnormality. Narrative 07/05/2024 1:29 PM DEVULCANIZER CHARGER EXAM DESCRIPTION: XR CHEST 2 VIEWS REASON FOR STUDY: cough, chest pressure, nausea/vomiting x 2 week. Dx with COVID-19 on 06/20/24 TECHNIQUE: Frontal and lateral radiographic view(s) of the chest. COMPARISON: Chest radiograph dated 03/05/2024. FINDINGS: LUNGS: No focal opacity, pleural effusion, or pneumothorax. Calcified granuloma noted within the right upper lung. HEART/MEDIASTINUM: Cardiac silhouette normal in size. Mediastinal and hilar contours appear normal. LINES/TUBES: None. BONES: No acute osseous abnormality. THIS IS AN ELECTRONICALLY VERIFIED FINAL REPORT 07/05/2024 1:27 PM - Electronically signed by Robert Balderas M.D. MF: [id number] Report ID: [id number] Reading Location: [id number] Procedure Note Robert Balderas, DO - 07/05/2024 EXAM DESCRIPTION: XR CHEST 2 VIEWS REASON FOR STUDY: cough, chest pressure, nausea/vomiting x 2 week. Dx with COVID-19 on 06/20/24 TECHNIQUE: Frontal and lateral radiographic view(s) of the chest. COMPARISON: Chest radiograph dated 03/05/2024. FINDINGS: LUNGS: No focal opacity, pleural effusion, or pneumothorax. Calcified granuloma noted within the right upper lung. HEART/MEDIASTINUM: Cardiac silhouette normal in size. Mediastinal and hilar contours appear normal. LINES/TUBES: None. BONES: No acute osseous abnormality. THIS IS AN ELECTRONICALLY VERIFIED FINAL REPORT 07/05/2024 1:27 PM - Electronically signed by Robert Balderas M.D. MF: [id number] Report ID: [id number] Reading Location: [id number] IMPRESSION: No acute cardiopulmonary abnormality. Dominic Gongora MD [facility] [place] DIAGNOSTIC ORDERABLES Final Result * RSV,SARS-COV-2,INFLUENZA A&B BY PCR (07/05/2024 11:56 AM DEVULCANIZER CHARGER) FLU A Negative Negative, Error 07/05/2024 12:37 PM DEVULCANIZER CHARGER [facility] FLU B Negative Negative 07/05/2024 12:37 PM DEVULCANIZER CHARGER [facility] RESP SYNC VIRUS Negative Negative 12:37 PM DEVULCANIZER CHARGER [facility] SARSCOV2 NOT DETECTED (Reference Range for this test is Not Detected) 07/05/2024 12:37 PM DEVULCANIZER CHARGER [facility] Comment:This test was perfor med by a Reverse Child Support Officer PCR Method. Swab NASOPHARYNGEAL SWAB / Unknown Non-Phlebotomy Collection / Unknown 07/05/2024 11:56 AM DEVULCANIZER CHARGER 07/05/2024 11:56 AM DEVULCANIZER CHARGER Narrative [facility] - 07/05/2024 12:37 PM DEVULCANIZER CHARGER This test has not been FDA cleared or approved; the test has been authorized by FDA under an Emergency Use Authorization (EUA) for use by laboratories certified under the CLIA that meet the requirements to perform moderate, high or waived complexity tests. Authorized Fact Sheets about this test for providers and patients are available at: https://www.fda.gov/medical-devices/rvwytuyka-wdsxqmqsvi-markgtv-devices/emergen -us e-authorizations us Dominic Gongora MD MICROBIOLOGY - GENERAL ORDERABLE S Final Result [facility] [address] [place] [address] * (ABNORMAL) POC SARS-COV-2 BY MOLECULAR (06/20/2024 11:26 AM DEVULCANIZER CHARGER) SARSCOV2 Positive(A ) Negative, INVALID PROCEDURE CONTROL Valid 06/20/2024 11:2 6 AM DEVULCANIZER CHARGER us Latoya Negrete CHILDREN'S ENTERTAINER, ELECTRIC METER REPAIRER APPRENTICE POINT OF CARE TESTI NG (MANUAL) Final Result * POC INFLUENZA A AND B BY MOLECULAR (06/20/2024 11:22 AM DEVULCANIZER CHARGER) INFLUENZA A RNA Negative Negative, Invalid INFLUENZA B RNA Negative Negative, Invalid PROCEDURE CONTROL Valid 06/20/2024 11:2 2 AM DEVULCANIZER CHARGER us Latoya Negrete APRN, SAMEER POINT OF CARE TESTI NG (MANUAL) Final Result * POC GROUP A STREP BY MOLECULAR (06/20/2024 10:59 AM DEVULCANIZER CHARGER) STREP A DNA Negative Negative, Invalid PROCEDURE CONTROL Valid 06/20/2024 10:5 9 AM DEVULCANIZER CHARGER us Latoya Negrete APRN, SAMEER POINT OF CARE TESTI NG (MANUAL) Final Result from Last 3 Months Additional Health Concerns Infection Onset Date Last Indicated Other 04/02/2020 04/02/2020 Insurance MEDICAID [employer] Care Teams Help Desk Analyst Relationship Specialty Start Date End Date Andra Alonso APRN, CNP [address] [facility] [address] [place] [address] PCP - General Advanced Practice Nurse 06/03/23 Elodia Bowman MD [address] [facility] [address] [place] [address] Consulting Physician Endocrinology 08/29/23
--- OUTSIDE RECORDS SUMMARY | 2024-08-22 13:48 | XMS_ITS | Referral Summary ---
Author Organization [facility] Address [address] [facility] [place] [address] Care Team Providers Care Linen Room Supervisor Name Role Phone Radha Deluna Primary Care Provider [phone] Source Comments [facility],non-owned Affiliates and Associated Physician Practices is amultiple site organization consisting of ambulatory clinics and hospital sitesin [place], [place], [place] and [place]. This disclosure is being madepursuant to the Care Everywhere program and may not contain all information available regarding this patient. Last updated 18.[facility] [employer] (by [employer]) Social History Tobacco Use Types Packs/Day Years Used Date Smoking Tobacco: Never Assessed Sex and Gender Information Value Date Recorded Sex Assigned at Not on file Gender Identity Not on file Sexual Orientation Not on file Plan of Treatment Not on file Care Teams Linen Room Supervisor Relationship Specialty Start Date End Date Radha Deluna APRN-CNP [address] [place] [phone] PCP - General 08/23/22
--- OUTSIDE RECORDS SUMMARY | 2024-08-22 13:49 | XMS_ITS | Clinical Summary ---
Author Organization [facility] Address [address] [place] [address] Care Team Providers Care Fruit Harvest Machine Operator Name Role Phone Mikie, Radha Smith NP Primary Care Provider No, Physician Unavailable Allergies Active Allergy Reactions Criticality Noted Date Comments Amoxicillin Hives Medium 10/05/2015 Ciprofloxacin Rash Medium 02/11/2021 Penicillins Vancomycin Hives,Rash Medium 10/08/2022 Medications No known medications Active Problems Problem Noted Date Diagnosed Date Intentional overdose, initial encounter 12/25/19 Vaginal cuff dehiscence, initial encounter 10/09 Dehiscence of vaginal cuff 10/08/2022 Overview (10/08/2022): Added automatically from request for surgery [id number] Right foot sprain, initial encounter 11/25/2017 Surgical History Surgery Date Site/Laterality Comments TUBAL LIGATION TOTAL ABDOMINAL HYSTERECTOMY W/ BILATERAL SALPINGOOPHORECTOMY N/A Medical History Medical History Date Comments Bipolar disorder (HCC) Anxiety Endometriosis Social History Tobacco Use Types Packs/Day Years Used Date Smoking Tobacco: Every Day Cigarettes Smokeless Tobacco: Never Tobacco Cessation:Ready to Q uit: Not Asked; Counseling Given: Not Answered Alcohol Use Standard Drinks/Week Comments Yes 0 (1 standard drink = 0.6 oz pur e alcohol) Social Connection and Isolation Panel [NHANES] A nswer Date Recorded In a typical week, how many times do you talk on the phone with family, friends, or neighbors? Three times a week 12/26/2022 How often do you get togethe r with friends or relatives? Once a week 12/26/2022 How often do you attend chur ch or adventism services? Never 12/26/2022 Do you belong to any clubs o r organizations such as presybeterian groups, unions, fraternal or athletic groups, or school groups? No 12/26/2022 How often do you attend meet ings of the clubs or organizations you belong to? Never 12/26/2022 Are you , , di vorced, , never , or living with a partner? Never 12/26/2022 Overall Financial Resource Strain (CARDIA) Answe r Date Recorded How hard is it for you to pa y for the very basics like food, housing, medical care, and heating? Somewhat hard 12/26/2022 Hunger Vital Sign Answer Date Recorded Within the past 12 months, y ou worried that your food would run out before you got the money to buy more. Never true 12/27/19 23 Within the past 12 months, t he food you bought just didn't last and you didn't have money to get more. Never true 12/26/2022 PRAPARE - Transportation Answer Date Re corded In the past 12 months, has l ack of transportation kept you from medical appointments or from getting medications? No 12/07 In the past 12 months, has l ack of transportation kept you from meetings, work, or from getting things needed for daily living? No 12/26/2022 Housing Stability Vital Sign Answer Julio e Recorded In the last 12 months, was t here a time when you were not able to pay the mortgage or rent on time? No 12/26/2022 In the last 12 months, how many places have you lived? 1 12/26/2022 In the last 12 months, was t here a time when you did not have a steady place to sleep or slept in a custodial (including now)? No 12/26/2022 Personal Safety Answer Date Recorded Getting School Help Needed Not on file 02/22 Education Answer Date Recorded What is the highest level of school you have completed or the highest degree you have received? 12th grade 12/26/2022 Comments No Sex and Gender Information Value Date Recorded Sex Assigned at Not on file Legal Sex Female 8:03 AM BLACK POWDER GLAZING OPERATOR Gender Identity Not on file Sexual Orientation Not on file Obstetrics History Para Term AB IAB SAB Ectopic Multiple Livin g Live Births 2 2 2 2 2 Date Outcome GA Total Labor Labor/2nd/3rd Weight Sex Type Anes PTL Nannette A1 A5 Name Clin Term Living Term Living Last Filed Vital Signs Vital Sign Reading Time Taken Comments Blood Pressure 108/74 01/19/2023 6:30 PM CDT Pulse 78 01/19/2023 6:30 PM CDT Temperature 36.9 C (98.4 F) 01/19/2023 5:46 PM CDT Respiratory Rate 18 01/19/2023 5:46 PM CDT Oxygen Saturation 95% 01/19/2023 6:30 PM CDT Inhaled Oxygen Concentration - - Weight 86.2 kg (190 lb) 01/19/2023 5:46 PM CDT Height 172.7 cm (5' 8 ) 01/19/2023 5:46 PM CDT Body Mass Index 28.89 01/19/2023 5:46 PM CDT Plan of Treatment Health Maintenance Due Date Last Done Comments Depression Screening 1989 Pneumococcal vaccine <65 (1 of 2 - PCV) 1995 Varicella Vaccines (1 of 2 - 13+ 2-dose series) 2002 Regular Well Visit/Exam 18-64 2007 Influenza Vaccine (#1) 2024 DTaP/Tdap/Td Vaccine (7 - Td or Tdap) 01/28/2029 01/28/2019, 02/20/1995, 02/13/1993, Additional history exists Hepatitis B Screening Completed 11/10/1998 , 04/21/1998, 02/20/1995 Hepatitis C Screening Completed 07/06/2017 HPV Vaccines Aged Out No longer eligi ble based on patient's age to complete this topic Procedures Procedure Name Priority Date/Time Associated Diagnosis Comments HEPATITIS C ANTIBODY STAT 07/06/2017 5:40 PM BLACK POWDER GLAZING OPERATOR from Last 3 Months or Most Recently Relevant to Health Maintenance Results * Hepatitis C antibody (07/06/2017 5:40 PM BLACK POWDER GLAZING OPERATOR) Hep C Ab Negative Negative [facility] ([place]) Comment:Testing performed by : [facility], [address] [place] [address], [place]., [address] Blood specimen (specimen) 07/06/2017 5:40 PM BLACK POWDER GLAZING OPERATOR 07/09/2017 11:38 AM BLACK POWDER GLAZING OPERATOR Narrative [facility] ([place]) - 07/09/2017 12:39 PM BLACK POWDER GLAZING OPERATOR [facility] MICROBIOLOGY - GENE RAL ORDERABLES Final Result [facility] ([place]) [address] [facility] [place] [address] from Last 3 Months or Most Recently Relevant to Health Maintenance Insurance [facility] MEDICAID [facility] Advance Directives For more information, please contact: [phone] * Full Code (Latest Code Status on File) Date Activated Date Inactivated Comments 12/24/2022 5:07 PM 12/28/2022 2:42 AM * Full Code Date Activated Date Inactivated Comments 10/09/2022 5:11 AM 10/10/2022 8:29 PM Care Teams Fruit Harvest Machine Operator Relationship Specialty Start Date End Date Radha Deluna NP [address] [place] [address] PCP - General 10/26/19 No, Physician 10/26/19
--- OUTSIDE RECORDS SUMMARY | 2024-08-22 13:49 | XMS_ITS | Referral Summary ---
Author Organization [facility] Address [address] [place] [address] Care Team Providers Care Automatic Clipper Name Role Phone Mikie, Radha Smith NP Primary Care Provider No, Physician Unavailable Allergies Active Allergy Reactions Criticality Noted Date Comments Amoxicillin Hives Medium 10/05/2015 Ciprofloxacin Rash Medium 02/11/2021 Penicillins Vancomycin Hives,Rash Medium 10/08/2022 Medications No known medications Active Problems Problem Noted Date Diagnosed Date Intentional overdose, initial encounter 12/25/19 23 Vaginal cuff dehiscence, initial encounter 10/09 Dehiscence of vaginal cuff 10/08/2022 Overview (10/08/2022): Added automatically from request for surgery [id number] Right foot sprain, initial encounter 11/25/2017 Social History Tobacco Use Types Packs/Day Years [...] often do you attend chur ch or mormon services? Never 12/26/2022 Do you belong to any clubs o r organizations such as nondenominational groups, unions, fraternal or athletic groups, or [...] place to sleep or slept in a retirement (including now)? No 12/26/2022 Personal Safety Answer Date Recorded Getting School Help Needed Not on file 02/22 Education Answer Date Recorded What is the highest level of school you have completed or the highest degree you have received? 12th grade 12/26/2022 Comments No Sex and Gender Information Value Date Recorded Sex Assigned at Not on file Legal Sex Female 8:03 AM PROTECTIVE SIGNAL SUPERINTENDENT Gender Identity Not on file Sexual Orientation [...] 01/19/2023 5:46 PM CDT Plan of Treatment Not on file Procedures Procedure Name Priority Date/Time Associated Diagnosis Comments HEPATITIS C ANTIBODY STAT 07/06/2017 5:40 PM PROTECTIVE SIGNAL SUPERINTENDENT from Last 3 Months or Most Recently Relevant to Health Maintenance Results * Hepatitis C antibody (07/06/2017 5:40 PM PROTECTIVE SIGNAL SUPERINTENDENT) Hep C Ab Negative Negative KAT [facility] ([place]) Comment:Testing performed by : [facility], [address] [place] [address]., [facility] Blood specimen (specimen) 07/06/2017 5:40 PM PROTECTIVE SIGNAL SUPERINTENDENT 07/09/2017 11:38 AM PROTECTIVE SIGNAL SUPERINTENDENT Narrative [facility] ([place]) - 07/09/2017 12:39 PM PROTECTIVE SIGNAL SUPERINTENDENT [facility] MICROBIOLOGY - [facility] ORDERABLES Final Result [facility] ([place]) 1 [facility] Department [place] [address] from Last 3 Months or Most Recently Relevant to Health Maintenance Insurance [facility] MEDICAID [facility] [place] [facility] [id number] [place] [address] Member Subscriber Plan / Payer (Ef fective 2020-Present) Name:Rafita Maldonado Relation to Subscriber:Self Name:Rafita Maldonado Payer ID:[id number] (NAIC) Group ID:Not on file Type:MEDICAID RISK OTHER Address: ATTN: CLAIMS DEPT [address] [facility] [place] [phone] Advance Directives For more information, please contact: [phone] * Full Code (Latest Code Status on File) Date Activated Date Inactivated Comments 12/24/2022 5:07 PM 12/28/2022 2:42 AM * Full Code Date Activated Date Inactivated Comments 10/09/2022 5:11 AM 10/10/2022 8:29 PM Care Teams Automatic Clipper Relationship Specialty Start Date End Date Radha Deluna NP [address] [place] [address] [place] [id number] PCP - General 10/26/19 No, Physician 10/26/19
--- OUTSIDE RECORDS SUMMARY | 2024-08-22 13:49 | XMS_ITS | Encounter Summary ---
Author Organization [facility] Address [address] [place] [address] Phone Care Team Providers Care Container Washer Name Role Phone Andra Alonso APRN, SAMEER Primary Care Provid er Elodia Bowman MD Unavailable Reason for Visit * Reason Comments Medication Refill Encounter Details Date Type Department Care Team (Late st Contact Info) Description 07/27/2023 Refill [facility] - Family Medicine - [place] [address] [place] [address] Andra Aolnso APRN, SAMEER [address] [address] Medication Refill Social History Tobacco Use Types Packs/Day Years Used Date Smoking Tobacco: Every Day Cigarettes 0.5 15 Smokeless Tobacco: Never Alcohol Use Standard Drinks/Week Comments No 0 (1 standard drink = 0.6 oz pur e alcohol) AUDIT-C Answer Date Recorded Q1: How often do you have a drink containing alc ohol? Never 09/02/2019 Average Number of Drinks Not on file 020 Frequency of Binge Drinking Not on file 08/09 PHQ-2 Answer Date Recorded Total Score - Questions 1-9 19 05/09 Education Answer Date Recorded What is the highest level of school you have completed or the highest degree you have received? 11th grade 06/03/2023 Sexually Active Control Partners Comments Not Currently Comments No Sex and Gender Information Value Date Recorded Sex Assigned at Not on file Legal Sex Female 11:47 PM CDT Gender Identity Not on file Sexual Orientation Not on file documented as of this encounter Miscellaneous Notes * Telephone Encounter - Melisa Hassan RN - 07/27/2023 11:31 AM PEANUT SORTER Upcoming OV 07-30-23 Medication failed the protocol, provider to review and approve the medication order if appropriate. Requested Prescriptions Pending Prescriptions Disp Refills DULoxetine (CYMBALTA) [address] Particles [Pharmacy Med Name: DULOXETINE DR 30MG CAPSULES] 30 Capsule 0 Sig: Take 1 Capsule by mouth daily. SNRI (6 Month Refill Only) Protocol Failed - 07/27/2023 5:47 AM Failed - Has an encounter in the past 6 months with a depression or anxiety visit diagnosis Failed - Patient has established therapy with Serotonin-Norepinephrine Reuptake Inhibitors for at least 6 months Passed - Visit with relevant provider in past 6 months or upcoming 90 days Recent Visits Date Type Provider Dept 07/02/23 Office Visit Andra Alonso APRN, SAMEER [facility] 06/03/23 Office Visit Andra Alonso APRN, SAMEER [facility] Showing recent visits within past 182 days and meeting all other requirements Future Appointments Date Type Provider Dept 07/30/23 Appointment Andra Alonso APRN, SAMEER [facility] Showing future appointments within next 90 days and meeting all other requirements [facility] documented in this encounter Plan of Treatment Upcoming Encounters Date Type Department Care Team (Late st Contact Info) Description 09/08/2024 1:00 PM PEANUT SORTER Office Visit [facility] - Obstetrics & Gynecology - [place] [address] [facility] [place] [address] Adrien Juarez MD [address] [place] [address] 09/08/2024 1:45 PM PEAN[facility] SORTER Office Visit [facility] - Family [facility] [address] [place] [address] Andra Alonso APRN, TRACTOR TRAILER OPERATOR #2 [facility] [address] [place] [address] documented as of this encounter Visit Diagnoses Diagnosis Bipolar 1 disorder (HCC) Bipolar I disorder, most recent episode (or current) unspecified Endometriosis Endometriosis, site unspecified documented in this encounter Additional Health Concerns Infection Onset Date Last Indicated Resolved Time Other 04/02/2020 04/02/2020 COVID - 19 02/23/2024 02/23/2024 02/23/2024 8:08 PM CDT COVID - 19 03/05/2024 03/05/2024 03/05/2024 4:53 PM CDT COVID - 19 06/20/2024 06/20/2024 06/20/2024 11:2 9 AM PEANUT SORTER Respiratory Rule-Out 06/20/2024 06/20/2024 024 11:37 AM PEANUT SORTER COVID - 19 Confirmed 06/20/2024 06/20/2024 025 12:16 AM PEANUT SORTER COVID - 19 07/05/2024 07/05/2024 07/05/2024 12:3 7 PM [facility]AN[facility] SORTER Assessment Noted Time PHQ-9 Depression Total Score: 19 023 11:00 AM PEANUT SORTER documented as of this encounter Care Teams Container Washer Relationship Specialty Start Date End Date Andra Alonso APRN, TRACTOR TRAILER OPERATOR [address]2 [facility] [address] [place] [address] PCP - General Advanced Practice Nurse 06/03/23 Elodia Bowman MD [address]2 [facility] [address] [place] [address] Consulting Physician Endocrinology 08/29/23 documented as of this encounter
--- OUTSIDE RECORDS SUMMARY | 2024-08-22 13:49 | XMS_ITS | Encounter Summary ---
Author Organization [facility] Address [address] [place] [address] Phone Care Team Providers Care Mathematician Name Role Phone Andra Alonso APRN, CNP Primary Care Provid er Elodia Bowman MD Unavailable Reason for Visit * Reason Comments Medication Refill Encounter Details Date Type Department Care Team (Late st Contact Info) Description 12/04/2023 Refill [facility] - Family Medicine [facility] [address] [place] [address] Andra Alonso APRN, CNP [address] [address] Medication Refill Social History Tobacco Use Types Packs/Day Years Used Date Smoking Tobacco: Every Day Cigarettes 0.5 15 Smokeless Tobacco: Never Alcohol Use Standard Drinks/Week Comments No 0 (1 standard drink = 0.6 oz pur e alcohol) [facility] Utilities Answer Date Recorded In the past 12 months has [employer], gas, oil, or water company threatened to shut off services in your home? Patient declined 08/12/2023 Social Connection and Isolation Panel [NHANES] A nswer Date Recorded In a typical week, how many times do you talk on the phone with family, friends, or neighbors? Twice a week 08/12/2023 How often do you get togethe r with friends or relatives? Once a week 08/12/2023 How often do you attend jewish or holiness serv ices? Patient declined 08/12/2023 Do you belong to any clubs o r organizations such as jewish groups, unions, fraternal or athletic groups, or [...] Date Recorded Total Score - Questions 1-9 1 11/2023 [facility] of Occupat ional Health - Occupational Stress [...] place to sleep or slept in a residential (including now)? Yes 08/12/2023 Education Answer Date Recorded What is the highest level of school you have completed or the highest degree you have received? 11th grade 06/03/2023 Sexually Active Control Partners Comments Not Currently Male Comments No Sex and Gender Information Value Date Recorded Sex Assigned at Not on file Legal Sex Female 11:47 PM CDT Gender Identity Not on file Sexual Orientation Not on file documented as of this encounter Miscellaneous Notes * Telephone Encounter - Andra Alonso APRN, CNP - 12/05/2023 6:53 PM CDT Approved * Telephone Encounter - Tania Otero RN - 12/05/2023 1:45 PM CDT Medication failed the protocol, provider to review and approve the medication order if appropriate. Requested Prescriptions Pending Prescriptions Disp Refills pregabalin (LYRICA) 75 MG Capsule [Pharmacy Med Name: PREGABALIN 75MG CAPSULES] 60 Capsule 0 Sig: TAKE 1 CAPSULE BY MOUTH TWICE DAILY Not Delegated - Anticonvulsants Excluding Benzodiazepines Protocol Failed - 12/04/2023 7:29 PM Failed - This refill cannot be delegated Passed - Visit with relevant provider in past 12 months or upcoming 90 days Recent Visits Date Type Provider Dept 09/24/23 Office Visit And[facility] Al[facility] APRN, SAME[facility] 08/12/23 Office Visit Andra Alonso APRN, CNP [facility] 07/02/23 Office Visit Andra Alonso APRN, CNP [facility] 06/03/23 Office Visit [facility], [facility] Showing recent visits within past 365 days and meeting all other requirements Future Appointments No visits were found meeting these conditions. Showing future appointments within next 90 days and meeting all other requirements documented in this encounter Plan of Treatment Upcoming Encounters Date Type Department Care Team (Late st Contact Info) Description 09/08/2024 1:00 PM KEYBOARD ACTION ASSEMBLER Office Visit [facility] Medical [facility] - Obstetrics & Gynecology - [place] [address]2 [facility] [address] Adrien Juarez MD [address] [place] [address] 09/08/2024 1:45 PM KEYBOARD ACTION ASSEMBLER Office Visit [facility] - Family Medicine - [place] [address]2 [place] [phone] Andra Alonso APRN, SAMEER [address] [place] [address] documented as of this encounter Goals Goal Patient Goal Type Associated Problems Recent Progress Patient-Stated? Author Psychological assessment Behavioral Health Doc [facility]ie[facility] PSYD Note: Patient will participate fully in a psychological assessment to determine whether she meets the criteria for ASD or another condition. documented as of this encounter Visit Diagnoses Diagnosis Endometriosis Endometriosis, site unspecified Myalgia Mylagia and myositis, unspecified documented in this encounter Additional Health Concerns Infection Onset Date Last Indicated Resolved Time Other 04/02/2020 04/02/2020 COVID - 19 02/23/2024 02/23/2024 02/23/2024 8:08 PM CDT COVID - 19 03/05/2024 03/05/2024 03/05/2024 4:53 PM CDT COVID - 19 06/20/2024 06/20/2024 06/20/2024 11:2 9 AM KEYBOARD ACTION ASSEMBLER Respiratory Rule-Out 06/20/2024 06/20/2024 024 11:37 AM KEYBOARD ACTION ASSEMBLER COVID - 19 Confirmed 06/20/2024 06/20/2024 025 12:16 AM KEYBOARD ACTION ASSEMBLER COVID - 19 07/05/2024 07/05/2024 07/05/2024 12:3 7 PM KEYBOARD ACTION ASSEMBLER Assessment Noted Time PHQ-9 Depression Total Score: 1 08/12/19 24 8:11 AM KEYBOARD ACTION ASSEMBLER documented as of this encounter Care Teams Mathematician Relationship Specialty Start Date End Date Andra Alonso APRN, LITIGATION SUPPORT ANALYST #2 [facility] [address] [place] [address] PCP - General Advanced Practice Nurse 06/03/23 Elodia Bowman MD #2 [facility] [address] [place] [address] Consulting Physician Endocrinology 08/29/23 documented as of this encounter
--- OUTSIDE RECORDS SUMMARY | 2024-08-22 13:49 | XMS_ITS | Data Portability ---
Author Organization [facility], [place] Address [address] [place] [address] Care Team Providers Care Lead Sales Consultant Name Role Phone MORRISON, MARY Primary Care Provider Assessment No assessment recorded. Plan of Treatment Reminders Order Date Submit Date Provider Last Modified By Organization Details Last Modified Time Details Appointments None recorded. Lab None recorded. Referral None recorded. Procedures None recorded. Surgeries robotic assisted hysterecto my w/bilatera l salpingo-o ophorectom y (SURG) 2021 023 [facility], [address] [address], [place], [address], 3 14:18:42 Imaging None recorded. Medication Orders estradiol 1 mg tablet 2022 023 ATHENAFAX Not available 16:21:41 Patient TargetsNo targets recorded. Patient InstructionsNo instructions recorded. Reason for Referral None Reported. Results Created Date Observation Date Name Description Value Unit Range Abnormal Flag Note LastModifiedBy Organization Detail LastModifiedTime 10/09/1910/08/2022 CULTU RE: AEROB IC/AN AEROB IC result report SEE RESULT S BELOW abnormal Test: Cultu re: Aerob ic/An aerob ic Speci men Sourc e: Other Speci men Type: Micro biolo gy Speci men Speci men Date: 023 2:29 PM Resul t Date: 023 10:13 AM Resul t Statu s: Final resul t Abnor mal: Yes Resul ting Lab: [facility] [address] [facility] [address] Tel: CULTU RE ----- ----- ----- --- Light Growt h Queta l uroge nital carin Light Growt h Jm tracy (Abno rmal) Cultu re sampl es colle cted from sites that are proxi mal to queta l anaer obic carin , do not provi de usefu l infor matio n. The anaer obic porti on of this cultu re has been credi abhishek. STAIN ----- ----- ----- --- Moder ate Neutr ophil s seen No organ isms seen Not Available [facility] (Lab) [address], [place], [address], 10/11/2022 11:16:13 Result Notes None recorded. Procedures Surgical History Date Name Laterality Status Provider Name and Address Organization Details Recorded Time 08/08/19 23 ROBOTIC ASSISTED HYSTERECTOMY W/BILATERAL SALPINGO-OOPHORE CTOMY (SURG) completed Otilia Estrella [facility] 08/09/2022 10:30:14 07/11/19 21 LAPAROSCOPY, DIAGNOSTIC (SURG) completed [facility] 08/22/2020 13:18:03 07/11/19 21 LAPAROSCOPY, DIAGNOSTIC (SURG) completed [facility] 08/13/2020 22:40:29 01/26/20 20 Date of Last Pap Smear completed Leisa Kenyon [facility] 01/04/2021 10:53:12 07/28/19 12 [facility]26[facility] 10:22:49 07/08/19 03 procedure completed [facility] 01/26/2020 10:23:16 Imaging Results None recorded. Procedure Notes None recorded. Medical Equipment None Reported. Allergies Allergen ID Allergen Name Allergen Category Reaction Reaction Severity Criticality Documentation Date Start Date Code Code System Note Provider Name and Address Organization Details Recorded Time 1381 amoxicill in medicatio n Not available Not available Not available 01/26/2020 723 RxNorm Dulce Lopez [facility] 0 10:19:24 Medications Name Sig Start Date Stop Date Status Note LastModified by Organization Details LastModified Time promethazin e-DM 6.25 mg-15 mg/5 mL oral syrup TAKE 5 ML BY MOUTH EVERY 4 HOURS NEEDED active Not Available Not Available No t Available nystatin 100,000 unit/mL oral suspension TAKE 5 ML BY MOUTH FOUR TIMES DAILY FOR 7 DAYS active Not Available Not Available No t Available doxycycline hyclate 100 mg capsule TAKE 1 CAPSULE BY MOUTH TWICE DAILY FOR 7 DAYS 12/22 completed Not Available Not Available Not Available azithromyci n 250 mg tablet TAKE 2 TABLETS BY MOUTH FOR 1 DAY THEN TAKE 1 TABLET BY MOUTH DAILY FOR 4 DAYS 06/11 completed Not Available Not Available Not Available hydrocodone 5 mg-acetamin ophen 325 mg tablet TAKE 1 TABLET BY MOUTH EVERY 4 HOURS NEEDED FOR PAIN active Not Available Not Available No t Available prednisone 20 mg tablet 01/25 completed Not Available Not Available Not Available dexamethaso ne 6 mg tablet TAKE 1 TABLET BY MOUTH EVERY DAY WITH BREAKFAST FOR 6 DAYS active Not Available Not Available No t Available sulfamethox azole 800 mg-trimetho prim 160 mg tablet 01/25 completed Not Available Not Available Not Available alprazolam 0.5 mg tablet TK 1 T PO TID PRA 12/22 completed Not Available Not Available Not Available estradiol 1 mg tablet TAKE 1 TABLET BY MOUTH EVERY DAY active Not Available Not Available No t Available bupropion HCl 75 mg tablet TAKE 1 TABLET BY MOUTH TWICE DAILY active Not Available Not Available No t Available hydroxyzine HCl 25 mg tablet TAKE 1 TABLET BY MOUTH THREE TIMES DAILY NEEDED active Not Available Not Available No t Available albuterol sulfate HFA 90 mcg/actuati on aerosol inhaler INHALE 2 PUFFS BY MOUTH EVERY 4 TO 6 HOURS NEEDED active Not Available Not Available No t Available ondansetron 4 mg disintegrat ing tablet DISSOLVE 1 TABLET ON THE TONGUE EVERY 8 HOURS NEEDED active Not Available Not Available No t Available fluticasone propionate 50 mcg/actuati on nasal spray,suspe nsion SHAKE LIQUID AND USE 1 SPRAY IN EACH NOSTRIL EVERY DAY active Not Available Not Available No t Available loratadine 10 mg tablet TAKE 1 TABLET BY MOUTH EVERY DAY active Not Available Not Available No t Available etonogestre l 0.12 mg-ethinyl estradiol 0.015 mg/24 hr vaginal ring Insert 1 vaginal ring every month by vaginal route. active Not Available Not Available No t Available Wal-itin D 10 mg-240 mg tablet,exte nded release TAKE 1 TABLET BY MOUTH EVERY DAY active Not Available Not Available No t Available Fluarix Quad (PF) 60 mcg (15 mcg x 4)/0.5 mL IM syringe ADM 0.5ML IM UTD 06/09 completed Not Available Not Available Not Available BinaxNOW COVID-19 Ag Self Test kit TEST DIRECTED TODAY active Not Available Not Available No t Available Vitals Date Recorded Body height Body mass index (BMI) Body weight Systolic blood pressure Diastolic blood pressure Provider Name and Address Organization Details Last Updated DateTime 06/11/2022 172.72 cm 28.9 kg/m2 73534.55 g 122 mm[Hg] 78 mm[Hg] [facility] 2 10:40:48 Date Recorded Body height Body mass index (BMI) Body weight Systolic blood pressure Diastolic blood pressure Provider Name and Address Organization Details Last Updated DateTime 07/30/2022 172.72 cm 28.6 kg/m2 10516.37 g 130 mm[Hg] 78 mm[Hg] [facility] 3 17:03:35 Date Recorded Body height Body mass index (BMI) Body weight Systolic blood pressure Diastolic blood pressure Provider Name and Address Organization Details Last Updated DateTime 08/16/2022 172.72 cm 28.1 kg/m2 90185.59 g 126 mm[Hg] 80 mm[Hg] [facility] 3 10:52:46 Date Recorded Body height Body mass index (BMI) Body weight Systolic blood pressure Diastolic blood pressure Provider Name and Address Organization Details Last Updated DateTime 10/08/2022 172.72 cm 29.3 kg/m2 40641.33 g 99 mm[Hg] 64 mm[Hg] Leisa Chantale [facility] 3 13:04:58 Social History Question Answer Notes LastModified by Organizat ion Details LastModified Time Tobacco Smoking Status Current Every Day Smoker Dulce Lopez nella [facility] 01/26/2020 10:22:00 What Is Your Level Of Alcohol Consumption? None Information not available 07/20/2020 What Is Your Level Of Caffeine Consumption? Occasional Information not available 07/20/2020 What Is Your Current Pack Years? 20-29packyears Information not available 07/20/2020 At What Age Did You Start Smoking Tobacco? 11 Information not available 07/20/2020 How Much Tobacco Do You Smoke? 1 PPW Information not available 07/20/2020 Do You Use Any Illicit Or Recreational Drugs? No Information not available 07/20/2020 Has Tobacco Cessation Counseling Been Provided? No Information not available 07/20/2020 How Many Years Have You Smoked Tobacco? 16 Information not available 07/20/2020 Do You Or Have You Ever Used Any Other Forms Of Tobacco Or Nicotine? No Information not available 07/20/2020 Sex: Unknown Functional Status Question Answer Note LastModified by Organization D etails LastModified Time What is your exercise level? None jgumber Information not available 01/26/2020 Mental Status None recorded. Family History Relationship Description Onset Age of this Age Resolved Age Notes LastModified by Organization Details LastModified Time Mother Heart disease jgumber Not available 2019 10:50:17 Mother Diabetes mellitus jgumber Not available 2019 10:51:11 Mother Hypercholest erolemia jgumber Not available 2019 10:52:32 Mother Hypertensive disorder jgumber Not available 2019 10:53:18 Mother Cyst of ovary jgumber Not available 2019 10:53:37 Maternal Grandmother Heart disease jgumber Not available 2019 10:50:17 Maternal Grandmother Diabetes mellitus jgumber Not available 2019 10:51:11 Maternal Grandmother Hypercholest erolemia jgumber Not available 2019 10:52:32 Maternal Grandmother Hypertensive disorder jgumber Not available 2019 10:53:18 Paternal Aunt Heart disease jgumber Not available 2019 10:50:17 Paternal Aunt Diabetes mellitus jgumber Not available 2019 10:51:11 Paternal Aunt Hypercholest erolemia jgumber Not available 2019 10:52:32 Paternal Aunt Hypertensive disorder jgumber Not available 2019 10:53:18 Paternal Uncle Heart disease jgumber Not available 2019 10:50:17 Paternal Uncle Diabetes mellitus jgumber Not available 2019 10:51:11 Paternal Uncle Hypercholest erolemia jgumber Not available 2019 10:52:32 Paternal Uncle Hypertensive disorder jgumber Not available 2019 10:53:18 Maternal Aunt Diabetes mellitus jgumber Not available 2019 10:51:11 Maternal Aunt Hypercholest erolemia jgumber Not available 2019 10:52:32 Paternal Grandmother Hypercholest erolemia jgumber Not available 2019 10:52:32 Paternal Grandmother Hypertensive disorder jgumber Not available 2019 10:53:18 Medical History Condition Response Autoimmune disease Y Other Y Endometriosis Y Anemia Y GI Problems Y Gynecological History Statement/Question Response Date of Last Pap Smear 01/26/2020 Current Control Method Hysterectom y 13 Date of LMP 01/16/2020 Obstetrics History GPAL:G 2 P 2 0 0 2 Type Value Full Term 2 Living 2 Total 2 Past Encounters Encounter ID Performer Location Encounter Start Date Encounter Closed Date Diagnosis/Indication Diagnosis SNOMED-CT Code Diagnosis ICD10 Code Diagnosis Note [id number] Jennifer Ramírez [address] [address] 01/26/2020 10:15:47 01/26/2020 11:32:54 Abnormal uterine bleeding [id number] 9100 N93.9 The patient and I discussed the various causes of abnormal uterine bleeding , including polyps, fibroids, hyperplasi a, atypia, anovulatio n, etc. We reviewed the typical evaluation with labs, pelvic US and possible endometria l biopsy. Briefly discussed the options available for treatment depending on the results of evaluation . This will be further discussed with Dr Meza at her follow up after u/s and labs are complete. Pap and STD chec was also collected today since pt has not had one in over a year. Enlarged uterus 46836898 4 N85.2 U/S and labs. See note under abnormal bleeding Constipati on alternates with diarrhea 710213144 K59.00 R19.7 This has been going on for years. Pt has never had a GI evaluation . Will send pt case to hardwood floor installer to schedule. Pt will call us to check the status of her referral if she has not heard from either us or a GI office in 1 week. [id number] Toya [place] [place] [address],[facility] [place] [address] 02/01/2020 12:10:17 02/01/2020 12:47:48 Abnormal uterine bleeding [id number] 9100 N93.9 N85.2 [id number] David Meza MD [place] [address] [address] 02/09/2020 11:21:42 02/09/2020 13:21:27 Pelvic and perineal pain 142703895 R10.2 This patient is a 29-year-ol d female with pelvic pain and menorrhagi a. Her pelvic pain is severe. It affects her quality of life. Affects her activities of daily living. She is missing work due to pelvic pain. She has failed multiple trials of medical therapy for pelvic pain. She also has developed some recent irregular bleeding. Irregular bleeding at times comes very heavy causing her to have accidents. We spent more than 25 minutes face-to-fa ce. We discussed all the treatment options/ medical treatment options for pelvic pain and menorrhagi a. We talked about procedure will options. We agreed to perform diagnostic laparoscop y. We will schedule this procedure and have her back for informed consent process. Menorrhagia [id number] N9 2.0 [id number] David Mzea MD [place] [address],[facility] [place] [address] 07/12/2020 09:07:49 07/12/2020 09:14:19 [id number] David Meza MD [place] [address] [address] 07/20/2020 16:35:03 07/20/2020 17:20:45 Endometriosis of pelvis 38630075 N80.3 this patient is a 29-year-ol d female who presents for follow-up. She is 1 weekpostop from a total laparoscop ic resection of endometrio sis. She had a radical resection of pelvic peritoneum ,endometri osis was visible on all specimens taken out through surgery. Patient continues to have some postoperat dayanna pain. We talked about adjunct medical treatment. She was briefly on all the active medical treatment agreed to NuvaRing. She will follow-up as needed. Her incisions are clean dry and intact. [id number] David Meza MD [place] [address],[place] [address] 12/22/2020 09:22:59 12/22/2020 10:04:24 Pain in pelvis 32265313 R10.2 [id number] David Meza MD [place] [address],[place] [address] 06/11/2022 10:08:27 06/12/2022 15:08:48 Endometriosis of pelvis 59200951 N80.30 Pain in pelvis 83899213 R10.2 this patient is a 31-year-ol d female with endometrio sis and severe pelvic pain. She had a laparoscop ic radical resection of endometrio sis early this year. Her pain is return. She has failed multiple medical treatment options. The patient is homebound at the time of her menses and her pain persists throughout the month. It is severe and unremittin g at the time of her menses and patient wants definitive surgical treatment. She would like her ovaries removed as well. She needs a cure. She is desperate for a cure. We spent over 40 minutes face-to-fa ce. Discussed the treatment options for endometrio sis. We talked about hysterecto my oophorecto my. Talked about the risks benefits and alternativ es to hysterecto my. Talked about the risks benefits and alternativ es to removal of the ovaries. She wants her best chance of a cure. We have agreed to perform robotic assisted total hysterecto my with bilateral salpingo-o ophorectom y. She understand s she may experience a loss of desire. She may experience a loss in her sense of well-being . She may have unremittin g menopausal symptoms that her difficult to treat. She understood all this and would still like to have her ovaries removed. We made a decision to perform surgery. patient also reports menorrhagi a. She has longstandi ng very heavy bleeding. Her menses are regular. However, they require double protection . Patient has accidents, getting blood on her bedding and clothing. Is affected work. She changes a pad or tampon every hour. She leaks blood around the pad and tampon. This bleeding has a profound impact on her quality of life and her activities of daily living. Menorrhagia 300237447 N9 2.0 [id number] David Meza MD [place] [address] [address] 07/30/2022 16:51:59 07/31/2022 14:51:42 Pain in pelvis 25748419 R10.2 Endometrio sis of pelvis 45230639 N80.30 this patient is a 32-year-ol d female with severe pelvic pain endometrio sis. We have agreed to perform total laparoscop ic hysterecto my bilateral salpingo-o ophorectom y. She understand s the risks, benefits, and alternativ es. She has completed the informed consent process and is ready to proceed. [id number] David Meza MD [place] [address] [address] 08/16/2022 10:24:48 08/16/2022 11:31:14 Menopause 189444521 Z78.0 Postoperative care 09816 9007 Z48.89 this patient is a 32-year-ol d femal who presents postoperat dayanna follow-up. She is recovering normally. She has and normal appearing incisions. They are clean dry and intact. She has been having some menopausal symptoms. We started hormone replacemen t therapy today. She will follow-up as needed. [id number] David Meza MD [place] [address] [address] 10/08/2022 12:25:35 10/09/2022 10:04:58 Pelvic abscess [id number] K65.1 This patient is a 32-year-ol d female presents with pelvic pain and vaginal discharge. She had hysterecto my 2 months ago. She had intense pain with intercours e last night. She was seen in the emergency department . Speculum exam yielded a large volume of pus. That was coming from the vaginal cuff. There appears to be pelvic abscess at the vaginal cuff, cannot rule out your [place] and urinary tract injury. She states that her bladder is filling and emptying regularly. I asked her to immediatel y go to the emergency department for admission with evaluation and in the operating room with exam under anesthesia , incision and drainage and drain placement. She was asked to go immediatel y. She understand s there is risk of eviscerati on. Spent over 40 minutes face-to-fa ce. More than 50% was counseling . Health Concerns Section Related Observation LastModified by Organization Detai ls LastModified Time None Recorded Concern Status LastModified by Organization Details LastModified Time None Recorded Advance Directives Directive None Recorded Payers Encounter Date Sequence Insurance Name Policy Number Policy Parr Covered Member ID Parr Member ID Guarantor Name 06/11/2022 1 [facility] - DOS ON OR AFTER 21 (MEDICAID REPLACEMENT - HMO) Rafita Maldonado [id number] Rafita Sinkdesiree 07/30/2022 1 [facility] - DOS ON OR AFTER 21 (MEDICAID REPLACEMENT - HMO) Rafita Sinkdesiree [id number] Rafita Sinks 08/16/2022 1 [facility] - DOS ON OR AFTER 21 (MEDICAID REPLACEMENT - HMO) Rafita Sinkdesiree [id number] Rafita Sinkdesiree 10/08/2022 1 [facility] - DOS ON OR AFTER 21 (MEDICAID REPLACEMENT - HMO) Rafita Maldonado [id number] Rafita Maldonado Notes Date Note Type Note Provider Name and Address Organization Details Recorded Time 06/11/2022 text/html this patient is a 31-year-old female with endometriosis and severe pelvic pain. She had a laparoscopic radical resection of endometriosis early this year. Her pain is return. She has failed multiple medical treatment options. The patient is homebound at the time of her menses and her pain persists throughout the month. It is severe and unremitting at the time of her menses and patient wants definitive surgical treatment. She would like her ovaries removed as well. She needs a cure. She is desperate for a cure. We spent over 40 minutes [id number]. Discussed the treatment options for endometriosis. We talked about hysterectomy oophorectomy. Talked about the risks benefits and alternatives to hysterectomy. Talked about the risks benefits and alternatives to removal of the ovaries. She wants her best chance of a cure. We have agreed to perform robotic assisted total hysterectomy with bilateral salpingo-oophorecto my. She understands she may experience a loss of desire. She may experience a loss in her sense of well-being. She may have unremitting menopausal symptoms that her difficult to treat. She understood all this and would still like to have her ovaries removed. We made a decision to perform surgery. patient also reports menorrhagia. She has longstanding very heavy bleeding. Her menses are regular. However, they require double protection. Patient has accidents, getting blood on her bedding and clothing. Is affected work. She changes a pad or tampon every hour. She leaks blood around the pad and tampon. This bleeding has a profound impact on her quality of life and her activities of daily living. David Meza MD [address], [place], [address], [facility] 06/11/2022 20:24:53 07/30/2022 text/html This patient is a 32-year-old femal with severe pelvic pain and endometriosis. Agreed to perform total laparoscopic hysterectomy bilateral salpingo-oophorecto my. The patient understands the procedure. The procedure was described to the patient in great detail. the patient also understands the risks. The risks were also explained in detail. She understands that injuries May occur during surgery. She understands these injuries can result in hospitalization, more surgery, and severe illness. She understands there is risk of hemorrhage and infection. David Meza MD [address], [place], [address], [facility] 07/30/2022 22:45:48 08/16/2022 text/html this patient is a 32-year-old femal who presents postoperative follow-up. She is recovering normally. She has and normal appearing incisions. They are clean dry and intact. She has been having some menopausal symptoms. We started hormone replacement therapy today. She will follow-up as needed. David Meza MD [address], [place], [address], [facility] 08/16/2022 11:30:08 10/08/2022 text/html This patient is a 32-year-old female presents with pelvic pain and vaginal discharge. She had hysterectomy 2 months ago. She had intense pain with intercourse last night. She was seen in the emergency department. Speculum exam yielded a large volume of pus. That was coming from the vaginal cuff. There appears to be pelvic abscess at the vaginal cuff, cannot rule out your [place] and urinary tract injury. She states that her bladder is filling and emptying regularly. I asked her to immediately go to the emergency department for admission with evaluation and in the operating room with exam under anesthesia, incision and drainage and drain placement. She was asked to go immediately. She understands there is risk of evisceration. Spent over 40 minutes [id number]. More than 50% was counseling. David Meza MD [address], [place], [address], [facility] 10/08/2022 21:00:15 OBGyn Episode Ob Episode Information Episode Created Date Number of Fetuses Patient Bloodtype Patient rh Status Prepregnancy Weight lbs Domestic Partner Domestic Partner Phone Father Name Tattoo Artist Status 01/26/20 20 1 CLOSED Fetus Data First Name Last Name Admitted to NICU Weight (g) Sex Living Outcome Pediatric Complications Fetus ID Race Codes Race Delivery Type 4053.75 1704 Full Term 3025 Vaginal Delivery Jose David Calculation Initial Jose David Date Initial Exam Date Initial Exam Provider Initial Ultrasound Date Last Menstrual Period Date Ultra Sound Weeks Gestation 0 Eighteen To Twenty Week Jose David Update Ultra Sound Date Fundal Height At Umbil Quickening Date Ultra Sound Latest Weeks Gestation Final Jose David Confirmed By Final Jose David Confirmed Date Final Jose David Date Ultra Sound Latest Days Gestation 0 0 Menstrual History Last Menstrual Date Menses Monthly On Bcp Conception Prior Menses Frequency Hcg Plus Date Menarche Onset Age Delivery Information Delivery Date Delivery Type Labor Anesthesia Weeks Gestation Incision Type Labor Labor Length Hrs Delivered By Post Complications Tubal Sterilization Discharge Date Comments 9 41 polly Discharge Information Feeding Method Contraceptive Method Maternal HG B and HCT Levels Ob Episode Information Episode Created Date Number of Fetuses Patient Bloodtype Patient rh Status Prepregnancy Weight lbs Domestic Partner Domestic Partner Phone Father Name Tattoo Artist Status 01/26/20 20 1 CLOSED Fetus Data First Name Last Name Admitted to NICU Weight (g) Sex Living Outcome Pediatric Complications Fetus ID Race Codes Race Delivery Type 4450.64 [id number] Full Term 3026 Vaginal Delivery Jose David Calculation Initial Jose David Date Initial Exam Date Initial Exam Provider Initial Ultrasound Date Last Menstrual Period Date Ultra Sound Weeks Gestation 0 Eighteen To Twenty Week Jose David Update Ultra Sound Date Fundal Height At Umbil Quickening Date Ultra Sound Latest Weeks Gestation Final Jose David Confirmed By Final Jose David Confirmed Date Final Jose David Date Ultra Sound Latest Days Gestation 0 0 Menstrual History Last Menstrual Date Menses Monthly On Bcp Conception Prior Menses Frequency Hcg Plus Date Menarche Onset Age Delivery Information Delivery Date Delivery Type Labor Anesthesia Weeks Gestation Incision Type Labor Labor Length Hrs Delivered By Post Complications Tubal Sterilization Discharge Date Comments 1 39 papi Discharge Information Feeding Method Contraceptive Method Maternal HG B and HCT Levels
--- OUTSIDE RECORDS SUMMARY | 2024-08-22 13:49 | XMS_ITS | Encounter Summary ---
Author Organization [facility] Address [address] [place] [address] Phone Care Team Providers Care System Administrator Name Role Phone Andra Alonso APRN, CNP Primary Care Provid er Elodia Bowman MD Unavailable Reason for Visit * Reason Comments Medication Refill Encounter Details Date Type Department Care Team (Late st Contact Info) Description 09/06/2023 Refill [facility] - [facility] [address] [place] [address] Andra Alonso APRN, CNP [address] [address] Medication Refill Social History Tobacco Use Types Packs/Day Years Used Date Smoking Tobacco: Every Day Cigarettes 0.5 15 Smokeless Tobacco: Never Alcohol Use Standard Drinks/Week Comments No 0 (1 standard drink = 0.6 oz pur e alcohol) [facility] Utilities Answer Date Recorded In the past 12 months has [employer], gas, oil, or water company threatened to [...] week 08/12/2023 How often do you attend episcopal or episcopal serv ices? Patient declined 08/12/2023 Do you belong to any clubs o r organizations such as episcopal groups, unions, fraternal or athletic groups, or [...] Total Score - Questions 1-9 1 11/2023 [facility] - Occupational Stress [...] Yes 08/12/2023 Housing Stability Vital Sign Answer Jluio e Recorded In the last 12 months, [...] place to sleep or slept in a senior living (including now)? Yes 08/12/2023 Education Answer Date [...] encounter Miscellaneous Notes * Telephone Encounter - Tania Otero RN - 09/06/2023 12:19 PM CST Medication failed the protocol, provider to review and approve the medication order if appropriate. Requested Prescriptions Pending Prescriptions Disp Refills DULoxetine (CYMBALTA) [address] Particles [Pharmacy Med Name: DULOXETINE DR 30MG CAPSULES] 90 Capsule 1 Sig: TAKE 1 CAPSULE BY MOUTH DAILY SNRI (6 Month Refill Only) Protocol Failed - 09/06/2023 5:47 AM Failed - Has an encounter in the past 6 months with a depression or anxiety visit diagnosis Failed - Patient has established therapy with Serotonin-Norepinephrine Reuptake Inhibitors for at least 6 months Passed - Visit with relevant provider in past 6 months or upcoming 90 days Recent Visits Date Type Provider Dept 08/12/23 Office Visit Andra Alonso APRN, [facility] 07/02/23 Office Visit Andra Alonso APRN, [facility] 06/03/23 Office Visit Andra Alonso APRN, [facility] Showing recent visits within past 182 days and meeting all other requirements Future Appointments Date Type Provider Dept 09/24/23 Appointment Andra Alonso APRN, CHEMICAL APPLICATOR [facility] Showing future appointments within next 90 days and meeting all other requirements METAL MIXER OPERATOR HELPER documented in this encounter Plan of Treatment Upcoming Encounters Date Type Department Care Team (Late st Contact Info) Description 09/08/2024 1:00 PM HOT METAL MIXER OPERATOR HELPER Office Visit [facility] - Obstetrics & Gynecology - [address] [place] [address] Adrien Juarez MD [address] [place] [address] 09/08/2024 1:45 PM HOT METAL MIXER OPERATOR HELPER Office Visit [facility] - Family Medicine - [address] [place] [address] Andra Alonso APRN, CHEMICAL APPLICATOR [address] [place] [address] documented as of this encounter Visit Diagnoses [...] 19 06/20/2024 06/20/2024 06/20/2024 11:2 9 AM HOT METAL MIXER OPERATOR HELPER Respiratory Rule-Out 06/20/2024 06/20/2024 024 11:37 AM HOT METAL MIXER OPERATOR HELPER COVID - 19 Confirmed 06/20/2024 06/20/2024 025 12:16 AM HOT METAL MIXER OPERATOR HELPER COVID - 19 07/05/2024 07/05/202407/0507/05/2024 12:3 7 PM HOT METAL MIXER OPERATOR HELPER Assessment Noted Time PHQ-9 Depression Total Score: 1 08/12/19 8:11 AM HOT METAL MIXER OPERATOR HELPER documented as of this encounter Care Teams System Administrator Relationship Specialty Start Date End Date Andra Alonso APRN, CNP [address]2 [facility] [address] [place] [id number] PCP - General Advanced Practice Nurse 06/03/23 Elodia Bowman MD [address]2 [facility] [address] [place] [address] Consulting Physician Endocrinology 08/29/23 documented as of this encounter
[2024-08-22 13:57] VITALS: BP 117/82; PULSE 73; RESP 18; TEMP 36.4; O2SAT 96
--- NOTE | 2024-08-22 14:45 | ED_ITS ---
HPI - General Adult General Chief complaint: Wound/Laceration Stated complaint: cyst under arm, SOB Source: patient Mode of arrival: ambulatory Limitations: no limitations History of Present Illness HPI narrative: Patient presents for evaluation of a painful swollen lesion to the left axillary region for last 3 weeks. She reports minimal drainage from the affected area. No fever, chills, nausea, vomiting. For the past 5 days she has experienced respiratory symptoms including cough, shortness of breath, sinus congestion and nasal drainage. No recent sick contacts to her knowledge. She does vape. She has used an inhaler in the past but does not have a formal diagnosis of asthma. She has experienced recurrent bronchitis in the past. Related Data Home Medications ?Medication ?Instructions ?Recorded ?Confirmed ?Last Taken ?Type bupropion HCl 75 mg tablet 150 mg PO DAILY 07/30/22 08/22/24 08/08/22 History aripiprazole 5 mg tablet 5 mg PO DAILY 01/18/23 08/22/24 Unknown History escitalopram oxalate 10 mg tablet 10 mg PO DAILY 01/18/23 08/22/24 Unknown History estradiol 2 mg tablet 2 mg PO DAILY 01/18/23 08/22/24 Unknown History pregabalin 75 mg capsule 75 mg PO BID 01/18/23 08/22/24 Unknown History aripiprazole 15 mg tablet mg 08/22/24 Unknown History bupropion HCl 150 mg 24 hr tablet, mg PO 08/22/24 Unknown History extended release duloxetine 30 mg capsule,delayed mg PO 08/22/24 Unknown History release Allergies Allergy/AdvReac Type Severity Reaction Status Date / Time amoxicillin Allergy Unknown face swells Verified 08/22/24 13:49 Penicillins Allergy Unknown face swells Verified 08/22/24 13:49 clindamycin Allergy Rash Verified 08/22/24 13:49 Review of Systems Review of Systems: CONSTITUTIONAL: Denies fever, chills, or sweats. EYES: Denies visual changes, redness, or discharge. ENT: Reports sinus congestion and nasal drainage. Denies otalgia and sore throat CARDIOVASCULAR: Denies chest pain, palpitations, or edema. RESPIRATORY: Reports cough and shortness of GASTROINTESTINAL: Denies abdominal pain, nausea, vomiting, or diarrhea. GENITOURINARY: Denies dysuria or hematuria. SKIN: Reports painful swollen lesion to the left axillary region MUSCULOSKELETAL: Denies back pain, joint pain, or myalgia. NEUROLOGIC: Denies headache, numbness, dizziness, or weakness. PSYCHIATRIC: Denies anxiety or depression. [facility] Past Medical History Medical History Bipolar 1 disorder Kidney stone Anxiety and depression COVID-19 July of 2021 Overweight Surgical History Surgical History H/O tubal ligation H/O arthroscopic knee surgery Family History Family History Mother Family history non-contributory Social History Social History (Updated 08/22/24 @ 14:52 by JOSE Ramos, ) Smoking packs per day: 0.5 Smoking cigarettes per day: 10.0 Years smoked: 15 Smoking pack-years: 7.50 Smoking status: Current every day smoker Tobacco type: cigarettes and e-cigarettes/vaping Alcohol intake: never Alcohol use details: SOCIAL DRINKER IN PAST Substance use: current Substance use type: marijuana Other substance usage details: SMOKES MARIJUANA RARELY Living arrangements: with family Additional living arrangements comments: CHILD Spiritual care concerns: No Exam Narrative: GENERAL: Well-appearing, well-nourished, and in no acute distress. HEAD: Normocephalic, atraumatic. EYES: PERRLA and EOMI. ENT: Nares clear, no rhinorrhea or epistaxis. Mucous membranes moist. Oropharynx without tonsillar hypertrophy exudate or other lesions. Bilateral TMs pearly boland nonbulging NECK: Supple. No adenopathy or masses. No carotid bruits or JVD CHEST: There is wheezing noted with inspiration and expiration bilaterally. Cough present on exam. HEART: Regular rate and rhythm. No murmur heard. Normal peripheral pulses. ABDOMEN: Soft, nontender, nondistended, normal active bowel sounds. EXTREMITIES: Normal range of motion. No edema. SKIN: Approximately 2 x 1 cm raised erythematous lesion to left axillary region with underlying induration without fluctuance NEURO: No focal deficits. Alert and oriented x3. PSYCH: Normal mood and affect. Course Course Emergency Course: This is a 34-year-old female who presented for evaluation of a skin lesion to the left axillary region. There does not appear to be a drainable fluid collection. Attempted to get a chest x-ray but there considerable delays in getting the report back. Patient requested to be discharged home. Discharge with azithromycin and doxycycline. Prednisone for wheezing and albuterol as needed for shortness of breath. She should follow-up outpatient for further evaluation treatment and go to the emergency department for worsening symptoms. She is advised on smoking cessation. Level of Care: Express Care Visit Vital Signs Vital signs: Vital Signs Temperature 36.4 C 08/22/24 13:57 Pulse Rate 73 08/22/24 13:57 Respiratory Rate 18 08/22/24 13:57 Blood Pressure 117/82 08/22/24 13:57 Pulse Oximetry 96 08/22/24 13:57 Oxygen Delivery Room Air 08/22/24 13:57 Temperature 36.4 C 08/22/24 13:57 Pulse Rate 73 08/22/24 13:57 Respiratory Rate 18 08/22/24 13:57 Blood Pressure 117/82 08/22/24 13:57 Pulse Oximetry 96 08/22/24 13:57 Oxygen Delivery Room Air 08/22/24 13:57 Medical Decision Making Vital Signs Vital Signs: Vital Signs Temperature 36.4 C 08/22/24 13:57 Pulse Rate 73 08/22/24 13:57 Respiratory Rate 18 08/22/24 13:57 Blood Pressure 117/82 08/22/24 13:57 Pulse Oximetry 96 08/22/24 13:57 Oxygen Delivery Room Air 08/22/24 13:57 Temperature 36.4 C 08/22/24 13:57 Pulse Rate 73 08/22/24 13:57 Respiratory Rate 18 08/22/24 13:57 Blood Pressure 117/82 08/22/24 13:57 Pulse Oximetry 96 08/22/24 13:57 Oxygen Delivery Room Air 08/22/24 13:57 Discharge Plan Discharge Clinical Impression: Cellulitis of axilla, left, At high risk for pneumonia Patient Disposition: Home, Self-Care Condition: Stable Instructions: Antibiotic Form, Cellulitis (ED), Pneumonia (ED) Patient Language: Telugu Prescriptions: New doxycycline hyclate 100 mg tablet 100 mg PO BID 10 Days Qty: 20 0RF azithromycin 250 mg tablet See Rx Instructions .ROUTE .COMPLEX Qty: 6 0RF Rx Instructions: For 250 mg dose pack: take 500 mg today (day 1), then 250 mg for 4 days (days 2-5) prednisone 50 mg tablet 50 mg PO DAILY Qty: 5 0RF albuterol sulfate [Ventolin HFA] 90 mcg/actuation HFA aerosol inhaler 2 puff inhalation QID Qty: 8.5 0RF No Action estradiol 2 mg Tablet 2 mg PO DAILY escitalopram oxalate 10 mg Tablet 10 mg PO DAILY aripiprazole 5 mg Tablet 5 mg PO DAILY pregabalin 75 mg Capsule 75 mg PO BID aripiprazole 15 mg tablet bupropion HCl 150 mg tablet extended release 24 hr PO duloxetine 30 mg capsule,delayed release(DR/EC) PO bupropion HCl 75 mg tablet 150 mg PO DAILY Follow-up/Referrals: Russ Jones MD [Physician] - Time of Disposition: 16:11
== END 2024-08-22 16:16 | disposition home or self-care (01) ==
PROVIDERS: Emergency Provider Nurse Practitioner
DX: L03.112 Cellulitis of left axilla (principal); R06.02 Shortness of breath; F17.210 Nicotine dependence, cigarettes, uncomplicated; Z79.899 Other long term (current) drug therapy
CPT/HCPCS: 71046; 99213; G0463

== ENCOUNTER 2024-10-07 10:08 | Emergency (ER) | payer OTHER, SELFPAY ==
--- NOTE | ~2024-10-07 | XR_ITS ---
EXAMINATION: XR chest 2V DATE: 10/07/2024 11:33 INDICATION: Cough and shortness of breath TECHNIQUE: PA and lateral views of the chest were obtained. COMPARISON: Chest radiograph dated 08/22/2024 FINDINGS: Calcified right apical nodule consistent with old granulomatous disease. No focal airspace opacities, pulmonary edema, pleural effusion or pneumothorax. The cardiomediastinal silhouette is normal. Moder ate thoracic spondylosis. IMPRESSION: 1. No acute cardiopulmonary disease. Reviewed, dictated and finalized at location A.
[2024-10-07 10:28] VITALS: BP 125/79; PULSE 73; RESP 20; TEMP 36.6; O2SAT 94
--- NOTE | 2024-10-07 10:48 | ED.URI ---
HPI - URI/Sore Throat General Chief Complaint: Upper Respiratory Infection Stated Complaint: cough/hard to breath Time Seen by Provider: 10/07/24 10:48 Source: patient Mode of arrival: ambulatory Limitations: no limitations History of Present Illness HPI Narrative: 34-year-old female presented for complaint of cough, shortness of breath and wheezing. Symptoms worsening for 3 days. States today she was eating hot flavor chips and could not taste them. Endorses some nasal congestion and started with diarrhea today. Denies nausea, vomiting. Unable to determine if she has fevers or chills or body aches due to chronic hot flashes and possible fibromyalgia. She has not taking anything for symptoms. She vapes regularly. Related Data Home Medications ?Medication ?Instructions ?Recorded ?Confirmed ?Last Taken ?Type bupropion HCl 75 mg tablet 150 mg PO DAILY 07/30/22 10/07/24 08/08/22 History aripiprazole 5 mg tablet 5 mg PO DAILY 01/18/23 08/22/24 Unknown History pregabalin 75 mg capsule 75 mg PO BID 01/18/23 10/07/24 Unknown History aripiprazole 15 mg tablet mg 08/22/24 Unknown History bupropion HCl 150 mg 24 hr tablet, mg PO 08/22/24 Unknown History extended release duloxetine 30 mg capsule,delayed mg PO 08/22/24 Unknown History release estradiol 0.075 mg/24 hr weekly 10/07/24 Unknown History transdermal patch Allergies Allergy/AdvReac Type Severity Reaction Status Date / Time amoxicillin Allergy Unknown face swells Verified 10/07/24 10:45 Penicillins Allergy Unknown face swells Verified 10/07/24 10:45 clindamycin Allergy Rash Verified 10/07/24 10:45 Review of Systems Review of Systems: CONSTITUTIONAL: Denies body aches, fever, chills, or sweats. EYES: Denies visual changes, redness, or discharge. ENT: reports congestion, denies sore throat, or otalgia. CARDIOVASCULAR: Denies chest pain, palpitations, or edema. RESPIRATORY: Reports cough, sob, wheezing. GASTROINTESTINAL: Denies abdominal pain, nausea, vomiting, Reports diarrhea. GENITOURINARY: Denies dysuria or hematuria. SKIN: Denies rash MUSCULOSKELETAL: Denies back pain, joint pain, or myalgia. NEUROLOGIC: Denies headache All systems reviewed & are unremarkable except as noted in HPI and below PMFSH Past Medical History Medical History Bipolar 1 disorder Kidney stone Anxiety and depression COVID-19 July of 2021 Overweight Surgical History Surgical History H/O tubal ligation H/O arthroscopic knee surgery Family History Family History Mother Family history non-contributory Social History Social History Smoking packs per day: 0.5 Smoking cigarettes per day: 10.0 Years smoked: 15 Smoking pack-years: 7.50 Smoking status: Current every day smoker Tobacco type: cigarettes and e-cigarettes/vaping Alcohol intake: never Alcohol use details: SOCIAL DRINKER IN PAST Substance use: current Substance use type: marijuana Other substance usage details: SMOKES MARIJUANA RARELY Living arrangements: with family Additional living arrangements comments: CHILD Spiritual care concerns: No Comments At time of signature, I have reviewed and agree with nursing past medical, surgical, social and family history unless otherwise noted. Please see nursing chart for further information. There is no relevant family history pertinent to the presenting complaint Exam Narrative: GENERAL: Well-appearing, in no acute distress. EYES: EOMI. No redness or drainage. Conjunctivae normal. ENT: Mucous membranes pink and moist. No rhinorrhea. TMs mildly erythematous with clear effusion bilaterally. Throat normal. Uvula midline. NECK: Normal AROM. Supple. CHEST: No respiratory distress. Wheezing to all gudino. HEART: Regular rate and rhythm. No murmur appreciated. ABDOMEN: Soft, nontender, nondistended, normal active bowel sounds. EXTREMITIES: Normal range of motion. No edema. SKIN: Warm, dry, no rash. Capillary refill normal. Normal skin turgor. NEURO: Alert and oriented x3. Gait steady. PSYCH: flat affect. Course Course Emergency Course: Patient is aware of diagnosis, understands and agrees to treatment plan. Anticipatory guidance given. Patient agrees to follow-up as directed and is aware of reasons to seek care at the emergency department. Portions of this record may have been created with voice recognition software Level of Care: Express Care Visit Vital Signs Vital signs: Vital Signs Temperature 98 F 10/07/24 10:28 Pulse Rate 73 10/07/24 10:28 Respiratory Rate 20 10/07/24 10:28 Blood Pressure 125/79 10/07/24 10:28 Pulse Oximetry 94 10/07/24 10:28 Oxygen Delivery Room Air 10/07/24 10:28 Temperature 98 F 10/07/24 10:28 Pulse Rate 73 10/07/24 10:28 Respiratory Rate 20 10/07/24 10:28 Blood Pressure 125/79 10/07/24 10:28 Pulse Oximetry 94 10/07/24 10:28 Oxygen Delivery Room Air 10/07/24 10:28 MDM - URI/Sore Throat MDM Narrative Medical decision making narrative: flu and COVID neg Chest x-ray neg reassessed after Albuterol neb, significant improvement in lung sounds and patient reports improvement in breathing and wheezing. Discussed physical exam findings. Reviewed prescriptions. Advised supportive measures and signs/symptoms to go to the ER. Pt is appropriate for outpt treatment and f/u. Differential Diagnosis Differential diagnosis: Likely upper respiratory infection, sinusitis, viral infection, bronchitis and other (asthma, pneumonia) Lab Data Labs: Lab Results 10/07/24 Range/Units 11:46 POC Influenza A Ag Negative (Negative) POC Influenza B Ag Negative (Negative) POC SARS CoV-2 Ag Negative (Negative) Imaging Data Radiologist's impression: Patient: Rafita Maldonado : 1990 MR#: [id number] Age: 34 Acct:[id number] Loc: [facility] ADM Date: 10/07/24Attending Dr: Ordering Physician: Hallie Yeh APRN Date of Service: 10/07/24 Procedure(s): XR chest 2V Accession Number(s): [id number] cc: Hallie Yeh APRN; UNKNOWN,DOCTOR~ EXAMINATION: XR chest 2V DATE: 10/07/2024 11:33 INDICATION: Cough and shortness of breath TECHNIQUE: PA and lateral views of the chest were obtained. COMPARISON: Chest radiograph dated 08/22/2024 FINDINGS: Calcified right apical nodule consistent with old granulomatous disease. No focal airspace opacities, pulmonary edema, pleural effusion or pneumothorax. The cardiomediastinal silhouette is normal. Moderate thoracic spondylosis. IMPRESSION: 1. No acute cardiopulmonary disease. Discharge Plan Discharge Clinical Impression: Bronchitis Patient Disposition: Home, Self-Care Condition: Stable Instructions: Antibiotic Form, Acute Bronchitis (ED) Additional Instructions: Acute bronchitis can be contagious because it is usually caused by infection with a virus or bacteria. It is usually for a few days but you can be contagious for up to one week. Take medication as directed use your albuterol inhaler as needed for shortness of breath and wheezing Recommendations: Flonase spray and Zyrtec (or Claritin/Cherie) If you have runny nose or stuffy nose over the counter Cough syrup may cause drowsiness; avoid driving or take it at night time. ( Dimetapp, Robitussin, Mucinex) Tylenol every 8 hours as needed for pain Symptomatic treatment includes: rest, fluids, and increase humidity of the air at home. Follow up with your primary care provider as needed in 1 week Go to the ER for worsening symptoms or concerns Patient Language: Marshallese Prescriptions: New methylprednisolone [Medrol (Kwaku)] 4 mg tablets,dose pack See Rx Instructions .ROUTE .COMPLEX Qty: 21 0RF Rx Instructions: orally per package directions No Action aripiprazole 5 mg Tablet 5 mg PO DAILY pregabalin 75 mg Capsule 75 mg PO BID estradiol 0.075 mg/24 hr patch weekly aripiprazole 15 mg tablet bupropion HCl 150 mg tablet extended release 24 hr PO duloxetine 30 mg capsule,delayed release(DR/EC) PO albuterol sulfate [Ventolin HFA] 90 mcg/actuation HFA aerosol inhaler 2 puff inhalation QID Qty: 8.5 0RF bupropion HCl 75 mg tablet 150 mg PO DAILY Follow-up/Referrals: UNKNOWN,DOCTOR [Primary Care Provider] - Stand Alone Forms: Work/School Release IP Time of Disposition: 12:15
--- OUTSIDE RECORDS SUMMARY | 2024-10-07 11:23 | XMS_ITS | Clinical Summary ---
Author Organization [facility] Address [address] [place] [address] Care Team Providers Care Business Services Officer Name Role Phone Radha Deluna SHIMON-POSTAL CLERK Primary Care Provider [phone] Source Comments [facility],non-owned Affiliates and Associated Physician Practices is amultiple site organization consisting of ambulatory clinics and hospital sitesin [place], [place], [place] and [place]. This disclosure is being madepursuant to the Care Everywhere program and may not contain all information available regarding this patient. Last updated 18.[facility] Social History Tobacco Use Types Packs/Day Years [...] to complete this topic MENINGOCOCCAL (Group B) VACC INE SHARED DECISION-MAKING Aged Out No longer eligibl e based on patient's age to complete this topic MENINGOCOCCAL GROUPS A/C/Y/W VACCINE Aged Out No longer eligible b ased on patient's age to complete this topic PNEUMOCOCCAL VACCINE Aged Out No long er eligible based on patient's age to complete this topic Care Teams Business Services Officer Relationship Specialty Start Date End Date Radha Deluna APRN-SAMEER [address] [place] [id number] PCP - General 08/23/22
--- OUTSIDE RECORDS SUMMARY | 2024-10-07 11:23 | XMS_ITS | Encounter Summary ---
Author Organization [facility] Address [address] [place] [address] Phone Care Team Providers Care Client Strategist Name Role Phone Andra Alonso APRN, CNP Primary Care Provid er Elodia Bowman MD Unavailable Reason for Visit * Reason Comments Medication Refill Encounter Details Date Type Department Care Team (Late st Contact Info) Description 12/04/2023 Refill [facility] - [facility] [address]2 [place] [address] Andra Alonso APRN, CNP [address] [address] Medication Refill Social History Tobacco Use Types Packs/Day Years Used Date Smoking Tobacco: Every Day Cigarettes 0.5 15 Smokeless Tobacco: Never Alcohol Use Standard Drinks/Week Comments No 0 (1 standard drink = 0.6 oz pur e alcohol) [facility] Utilities Answer Date Recorded In the past 12 months has [email or web address], gas, oil, or water company threatened to [...] week 08/12/2023 How often do you attend synagogue or hinduism serv ices? Patient declined 08/12/2023 Do you belong to any clubs o r organizations such as synagogue groups, unions, fraternal or athletic groups, or [...] Total Score - Questions 1-9 1 11/2023 [facility] [place] of Occupat ional Health - Occupational Stress [...] place to sleep or slept in a skilled nursing (including now)? Yes 08/12/2023 Education Answer Date Recorded What is the highest level of school you have completed or the highest degree you have received? 11th grade 06/03/2023 Sexually Active Control Partners Comments Not Currently Male Comments No Sex and Gender Information Value Date Recorded Sex Assigned at Female 09/12/2024 3:51 AM FRANCHISE SPECIALIST Legal Sex Female 11:47 PM CDT Gender Identity Female 09/12/2024 3:51 AM FRANCHISE SPECIALIST Sexual Orientation Not on file documented as [...] 09/24/23 Office Visit [facility]23 Office Visit BruceantoniabrieAndra APRN, CNP [facility] [place] 07/02/23 Office Visit Andra Alonso APRN, CNP [facility] [place] 06/03/23 Office Visit BruceantoniabrieAndra APRN, SAMEER [facility] Showing recent visits within past 365 days and meeting all other requirements Future Appointments No visits were found meeting these conditions. Showing future appointments within next 90 days and meeting all other requirements documented in this encounter Plan of Treatment Upcoming Encounters Date Type Department Care Team (Late st Contact Info) Description 01/12/2025 8:30 AM CDT Office Visit [facility] Medical [facility] - Family Medicine - [place] [address] [place] [address] Andra Alonso APRN, SAMEER #[address] [address] 03/09/2025 1:00 PM CDT Office Visit [facility] - Obstetrics & Gynecology - [place] [address]2 [place] [address] Adrien Juarez MD #2 [place] [address] documented as of this encounter Goals Goal [...] 19 06/20/2024 06/20/2024 06/20/2024 11:2 9 AM FRANCHISE SPECIALIST Respiratory Rule-Out 06/20/2024 06/20/2024 024 11:37 AM FRANCHISE SPECIALIST COVID - 19 Confirmed 06/20/2024 06/20/2024 025 12:16 AM FRANCHISE SPECIALIST COVID - 19 07/05/2024 07/05/2024 07/05/2024 12:3 7 PM FRANCHISE SPECIALIST COVID - 19 09/12/2024 09/12/2024 09/12/2024 4:38 AM FRANCHISE SPECIALIST Assessment Noted Time PHQ-9 Depression Total Score: 1 08/12/19 8:11 AM FRANCHISE SPECIALIST documented as of this encounter Care Teams Client Strategist Relationship Specialty Start Date End Date Andra Alonso APRN, BRASS RECLAIMER #2 [facility] [address] [place] [address] PCP - General Advanced Practice Nurse 06/03/23 Elodia Bowman MD #2 [facility] [address] [place] [phone] Consulting Physician Endocrinology 08/29/23 documented as of this encounter
--- OUTSIDE RECORDS SUMMARY | 2024-10-07 11:23 | XMS_ITS | Referral Summary ---
Author Organization [facility] Address 1 [place] [address] Care Team Providers Care Surgical Instruments Inspector Name Role Phone Mikie, Radha Smith NP [...] (10/08/2022): Added automatically from request for surgery [id number] Right foot sprain, initial encounter 11/25/2017 Social [...] often do you attend chur ch or bahai services? Never 12/26/2022 Do you belong to any clubs o r organizations such as quaker groups, unions, fraternal or athletic groups, or [...] place to sleep or slept in a correction (including now)? No 12/26/2022 Personal Safety Answer Date Recorded Getting School Help Needed Not on file 02/22 Education Answer Date Recorded What is the highest level of school you have completed or the highest degree you have received? 12th grade 12/26/2022 Comments No Sex and Gender Information Value Date Recorded Sex Assigned at Not on file Legal Sex Female 8:03 AM OPENING MACHINE CLEANER Gender Identity Not on file Sexual Orientation [...] HEPATITIS C ANTIBODY STAT 07/06/2017 5:40 PM OPENING MACHINE CLEANER from Last 3 Months or Most Recently Relevant to Health Maintenance Results * Hepatitis C antibody (07/06/2017 5:40 PM OPENING MACHINE CLEANER) Hep C Ab Negative Negative KAT PARADA ([place]) Comment:Testing performed by : [facility], [address] [place] [address]., [facility] Blood specimen (specimen) 07/06/2017 5:40 PM OPENING MACHINE CLEANER 07/09/2017 11:38 AM OPENING MACHINE CLEANER Narrative KAT PARADA ([place]) - 07/09/2017 12:39 PM OPENING MACHINE CLEANER [facility] LAB MICROBIOLOGY - GENE [facility] ORDERABLES Final Result KAT PARADA ([place]) 1 [facility] Department [place] [address] from Last 3 Months or Most Recently Relevant to Health Maintenance Insurance [facility] MEDICAID [facility] [place] [facility] [id number] [place] [address] Member Subscriber Plan / Payer (Ef fective 2020-Present) Name:Rafita Maldonado Relation to Subscriber:Self Name:Rafita Maldonado Payer ID:[id number] (NAIC) Group ID:Not on file Type:MEDICAID RISK OTHER Address: ATTN: CLAIMS DEPT [address] [facility] [place] [id number] [address] Advance Directives For more information, please contact: [phone] * Full Code (Latest Code Status on File) Date Activated Date Inactivated Comments 12/24/2022 5:07 PM 12/28/2022 2:42 AM * Full Code Date Activated Date Inactivated Comments 10/09/2022 5:11 AM 10/10/2022 8:29 PM Care Teams Surgical Instruments Inspector Relationship Specialty Start Date End Date Radha Deluna NP [address] [place] [id number] PCP - General 10/26/19 No, Physician 10/26/19
--- OUTSIDE RECORDS SUMMARY | 2024-10-07 11:23 | XMS_ITS | Clinical Summary ---
Author Organization [facility] Address #1 [place] [address] Phone Care Team Providers Care Process Safety Engineering Technologist Name Role Phone Andra Alonso APRN, CNP Primary Care Provid er Elodia Bowman MD Unavailable Allergies Active Allergy Reactions Criticality Noted Date Comments Amoxicillin Hives 10/05/2015 Clindamycin Rash 06/06/2022 Penicillins Rash 06/06/2022 Medications DULoxetine (CYMBALTA) [address] ParticlesIndic ations:Bipolar 1 disorder (HCC),Endometr iosis Take 1 Capsule by mouth daily. 90 Capsule 1 4 Active buPROPion (WELLBUTRIN) 150 MG XL tabletIndicati ons:Bipolar 1 disorder (HCC) Take 1 Tablet by mouth every morning. 90 Tablet 1 4 Active ARIPiprazole (ABILIFY) 15 MG TabletIndicati ons:Bipolar 1 disorder (HCC) Take 1 Tablet by mouth daily. 90 Tablet 1 4 Active albuterol 108 (90 Base) MCG/ACT Aerosol Solution take 2 Puffs by inhalation every 6 hours as needed for Cough or Wheezing. 6.7 g 4 Active albuterol 108 (90 Base) MCG/ACT Aerosol Solution take 2 Puffs by inhalation every 6 hours as needed for Wheezing or Cough. 8 g 4 Active estradiol (CLIMARA) 0.075 MG/24HR PATCH WEEKLY 1 Patch by Transdermal route every 7 days. 4 Patch 6 5 Active pregabalin (LYRICA) 75 MG CapsuleIndicat ions:Endometri osis,Myalgia Take 1 Capsule by mouth 2 times daily. 60 Capsule 5 Active fluticasone (FLONASE) 50 MCG/ACT Suspension 4 025 Discontinu ed(Med List Clean Up) acyclovir (ZOVIRAX) 5 % OintmentIndica tions:Cold sore Apply every 3 hours. Application Site: cold sore apply until resolved (Description and Location) 30 g 4 025 Discontinu ed(Med List Clean Up) pregabalin (LYRICA) 75 MG CapsuleIndicat ions:Endometri osis,Myalgia Take 1 Capsule by mouth 2 times daily. 60 Capsule 4 025 Discontinu ed(Reorder ) estradiol (ESTRACE) 2 MG Tablet Take 1 Tablet by mouth daily. Hazardous: Medication requires special safe handling and disposal. 90 Tablet 3 4 025 Discontinu ed(Therapy completed) prazosin (MINIPRESS) 1 MG Capsule TAKE 1 CAPSULE BY MOUTH EVERY DAY AT BEDTIME FOR NIGHTMARES OR PTSD SYMPTOMS 4 025 Discontinu ed(Med List Clean Up) predniSONE (DELTASONE) 10 MG TabletIndicati ons:Bronchitis Take 4 Tablets by mouth daily for 3 days, THEN 3 Tablets daily for 2 days, THEN 2 Tablets daily for 2 days, THEN 1 Tablet daily for 2 days. 24 Tablet 5 025 Active Problems Problem Noted Date Diagnosed Date Intentional overdose 12/24/2022 06/03/2023 Dehiscence of operative wound 10/08/2022 Overview (06/03/2023): Added automatically from request for surgery [id number] Right foot sprain, initial encounter 11/25/2017 06/03/2023 Encounters Date Type Department Care Team Description 09/29/2024 MyChart RX Renewal [facility] [place], [place] [address] [place] [address] Andra Alonso APRN, CNP Medication Renewal Reviewed 09/12/2024 3:41 AM FOOT WORKER - 09/12/2024 5:17 AM FOOT WORKER [facility] 1 [place] [address] Zia Gamboa MD Pharyngitis Discharge Disposition: Discharged to home or Selfcare 09/12/2024 Travel 09/08/2024 1:45 PM FOOT WORKER Office Visit [facility] - [place], [place] #2 [place] [address] Andra Alonso APRN, SAMEER Bipolar 1 disorder (HCC) (Primary Dx); Bronchitis Discharge Disposition: Discharged to home or Selfcare 09/08/2024 1:00 PM FOOT WORKER Office Visit [facility] Obstetrics & Gynecology [facility] #2 [place] [address] Adrien Juarez MD Post menopausal syndrome (Primary Dx); H/O: hysterectomy Discharge Disposition: Discharged to home or Selfcare 09/08/2024 Travel from Last 3 Months Immunizations Immunization Administration Dates Next Due DTP Vaccine 02/20/1995, 3,01/12/1991,01/07,1989 Hepatitis A Vaccine 01/28/2019 Hepatitis B Vaccine, Pediatric/adolescent 11/10/1998,04/21/1998,02/20/1995 Hib Vaccine,unspecified Formulation 01/12/1991 Influenza Vaccine, Quadrivalent, PF 06/03/2023,1 MMR Vaccine 01/31/1994,01/12/1991 OPV 04/21/1998, 3,01/12/1991,01/07,1989 Pneumococcal conjugate PCV20 , polysaccharide [id number] conjugate, adjuvant, PF 06/03/2023 TDAP Vaccine 01/28/2019 [...] drink = 0.6 oz pur e alcohol) [facility] Utilities Answer Date Recorded In the past 12 months has e electric, gas, oil, or water [employer] threatened to shut off services in your home? Patient declined 08/12/2023 Social Connection and Isolation Panel [NHANES] A nswer Date Recorded In a typical week, how many times do you talk on the phone with family, friends, or neighbors? Twice a week 08/12/2023 How often do you get togethe r with friends or relatives? Once a week 08/12/2023 How often do you attend religious or gnosticist serv ices? Patient declined 08/12/2023 Do you belong to any clubs o r organizations such as religious groups, unions, fraternal or athletic groups, or [...] Date Recorded Total Score - Questions 1-9 21 10/2024 [facility] [place] of Occupat ional Health - Occupational Stress [...] or slept in a retirement (including now)? Yes 08/12/2023 Education Answer Date Recorded What is the highest level of school you have completed or the highest degree you have received? 11th grade 06/03/2023 Sexually Active Control Partners Comments Not Currently Surgical Male Comments No Sex and Gender Information Value Date Recorded Sex Assigned at Female 09/12/2024 3:51 AM FOOT WORKER Legal Sex Female 11:47 PM CDT Gender Identity Female 09/12/2024 3:51 AM FOOT WORKER Sexual Orientation Not on file Last Filed Vital Signs Vital Sign Reading Time Taken Comments Blood Pressure 128/71 09/12/2024 3:37 AM FOOT WORKER Pulse 64 09/12/2024 3:37 AM FOOT WORKER Temperature 36.6 C (97.8 F) 09/12/2024 3:37 AM FOOT WORKER Respiratory Rate 16 09/12/2024 3:37 AM FOOT WORKER Oxygen Saturation 97% 09/12/2024 3:37 AM FOOT WORKER Inhaled Oxygen Concentration - - Weight 111.1 kg (245 lb) 09/12/2024 3:37 AM FOOT WORKER Height 172.7 cm (5' 8 ) 09/12/2024 3:37 AM FOOT WORKER Body Mass Index 37.25 09/12/2024 3:37 AM FOOT WORKER Plan of Treatment Upcoming Encounters Date Type Department Care Team (Late st Contact Info) Description 01/12/2025 8:30 AM CDT Office Visit [facility] - Family Medicine [facility] #[address] [place] [address] Andra Alonso APRN, DIRECTOR OF NATIONAL SALES #[address] [address] 03/09/2025 1:00 PM CDT Office Visit [facility] Medical [facility] - Obstetrics & Gynecology [facility] #2 [place] [address] Adrien Juarez MD #2 [place] [address] Health Maintenance Due Date Last Done Comments Hepatitis C Virus (HCV) Screening 1989 Influenza Immunization (#1) 2025 06/03/2023, 04/22/2020 Postponed from 03/08/2024 (Patient Temporarily Declines) DTaP/Tdap/Td Immunization (7 - Td or Tdap) [...] Procedure Name Priority Date/Time Associated Diagnosis Comments GROUP A STREP BY PCR STAT 09/12/2024 3:50 AM FOOT WORKER RSV,SARS-COV-2,INFL UENZA A&B BY PCR STAT 09/12/2024 3:50 AM FOOT WORKER from Last 3 Months Results * GROUP A STREP BY PCR (09/12/2024 3:50 AM FOOT WORKER) GROUP A STREP BY PCR NOT DETECTED NOT DETECTED 09/12/2024 4:24 AM FOOT WORKER [facility] Swab STRUCTURE OF ANTERIOR PORTION OF NECK / Unknown Non-Phlebotomy Collection / Unknown 09/12/2024 3:50 AM FOOT WORKER 09/12/2024 3:54 AM FOOT WORKER us Zia Gamboa MD MICROBIOLOGY - GENERAL OR DERABLES Final Result [facility]1 [place] [address] * RSV,SARS-COV-2,INFLUENZA A&B BY PCR (09/12/2024 3:50 AM FOOT WORKER) FLU A Negative Negative, Error 09/12/2024 4:38 AM FOOT WORKER [facility] FLU B Negative Negative 09/12/2024 4:38 AM FOOT WORKER [facility] RESP SYNC VIRUS Negative Negative 4:38 AM FOOT WORKER [facility] SARSCOV2 NOT DETECTED (Reference Range for this test is Not Detected) 09/12/2024 4:38 AM FOOT WORKER [facility] Comment:This test was perfor med by a Reverse Cardiac Monitor Technician PCR Method. Swab NASOPHARYNGEAL STRUCTURE / Unknown Non-Phlebotomy Collection / Unknown 09/12/2024 3:50 AM FOOT WORKER 09/12/2024 3:54 AM FOOT WORKER us Zia Gamboa MD MICROBIOLOGY - GENERAL OR DERABLES Final Result [facility] #1 [place] [address] from Last 3 Months Additional Health Concerns Infection Onset Date Last Indicated Other 04/02/2020 04/02/2020 Insurance MEDICAID [facility] Care Teams Process Safety Engineering Technologist Relationship Specialty Start Date End Date Andra Alonso APRN, DIRECTOR OF NATIONAL SALES #2 [facility] [address] [place] [address] PCP - General Advanced Practice Nurse 06/03/23 Elodia Bowman MD #2 [facility] [address] [place] [phone] Consulting Physician Endocrinology 08/29/23
--- OUTSIDE RECORDS SUMMARY | 2024-10-07 11:23 | XMS_ITS | Clinical Summary ---
Author Organization [facility] Address 1 [place] [address] Care Team Providers Care Food And Drug Inspector Name Role Phone Mikie, Radha Smith NP Primary Care Provider [phone] No, Physician Unavailable Allergies Active Allergy Reactions Criticality Noted Date Comments Amoxicillin Hives Medium 10/05/2015 Ciprofloxacin Rash Medium 02/11/2021 Penicillins Vancomycin Hives,Rash Medium 10/08/2022 Medications No known medications Active Problems Problem Noted Date Diagnosed Date Intentional overdose, initial encounter 12/25/19 23 Vaginal cuff dehiscence, initial encounter 10/09 Dehiscence of vaginal cuff 10/08/2022 Overview (10/08/2022): Added automatically from request for surgery [id number] Right foot sprain, initial encounter 11/25/2017 Surgical [...] often do you attend chur ch or denominational services? Never 12/26/2022 Do you belong to any clubs o r organizations such as spiritism groups, unions, fraternal or athletic groups, or [...] place to sleep or slept in a [place] health care facility (including now)? No 12/26/2022 Personal Safety Answer Date Recorded Getting School Help Needed Not on file 02/22 Education Answer Date Recorded What is the highest level of school you have completed or the highest degree you have received? 12th grade 12/26/2022 Comments No Sex and Gender Information Value Date Recorded Sex Assigned at Not on file Legal Sex Female 8:03 AM CHANNEL BUSINESS MANAGER Gender Identity Not on file Sexual Orientation [...] Date Last Done Comments Depression Screening 1989 Varicella Vaccines (1 of 2 - 13+ 2-dose series) 2002 Regular Well Visit/Exam 18-64 2007 Pneumococcal vaccine <65 (1 of 2 - PCV) 2008 Influenza Vaccine (Season Ended) 2025 DTaP/Tdap/Td Vaccine (7 - Td or Tdap) 01/28/2029 01/28/2019, 02/20/1995, 02/13/1993, Additional history exists Hepatitis B Screening Completed 11/10/1998 , 04/21/1998, 02/20/1995 Hepatitis C Screening Completed 07/06/2017 HPV Vaccines Aged Out No longer eligi ble based on patient's age to complete this topic Procedures Procedure Name Priority Date/Time Associated Diagnosis Comments HEPATITIS C ANTIBODY STAT 07/06/2017 5:40 PM CHANNEL BUSINESS MANAGER from Last 3 Months or Most Recently Relevant to Health Maintenance Results * Hepatitis C antibody (07/06/2017 5:40 PM CHANNEL BUSINESS MANAGER) Hep C Ab Negative Negative KAT PARADA ([place]) Comment:Testing performed by : [facility], [address] [place] [address], [place] [address] Blood specimen (specimen) 07/06/2017 5:40 PM CHANNEL BUSINESS MANAGER 07/09/2017 11:38 AM CHANNEL BUSINESS MANAGER Narrative KAT PARADA ([place]) - 07/09/2017 12:39 PM CHANNEL BUSINESS MANAGER [facility] Berrios LAB MICROBIOLOGY - GENE RAL ORDERABLES Final Result KAT PARADA ([place]) 1 [facility] [place] [address] from Last 3 Months or Most Recently Relevant to Health Maintenance Insurance [facility] MEDICAID [facility] Advance Directives For more information, please contact: [phone] * Full Code (Latest Code Status on File) Date Activated Date Inactivated Comments 12/24/2022 5:07 PM 12/28/2022 2:42 AM * Full Code Date Activated Date Inactivated Comments 10/09/2022 5:11 AM 10/10/2022 8:29 PM Care Teams Food And Drug Inspector Relationship Specialty Start Date End Date Radha Deluna NP [address] [place] [address] PCP - General 10/26/19 No, Physician 10/26/19
--- OUTSIDE RECORDS SUMMARY | 2024-10-07 11:23 | XMS_ITS | Encounter Summary ---
Author Organization [facility] Address [address] [place] [address] Phone Care Team Providers Care Route Process Administrator Name Role Phone Andra Alonso APRN, CNP Primary Care Provid er Elodia Bowman MD Unavailable Reason for Visit * Reason Comments Medication Refill Encounter Details Date Type Department Care Team (Late st Contact Info) Description 09/06/2023 Refill [facility] Medical Group - Family Medicine [facility] #2 [place] [address] Andra Alonso APRN, CNP #[address] [address] Medication Refill Social History Tobacco Use Types Packs/Day Years Used Date Smoking Tobacco: Every Day Cigarettes 0.5 15 Smokeless Tobacco: Never Alcohol Use Standard Drinks/Week Comments No 0 (1 standard drink = 0.6 oz pur e alcohol) [facility] Utilities Answer Date Recorded In the past 12 months has [employer], gas, oil, or water company threatened to [...] week 08/12/2023 How often do you attend sabianism or tenriism serv ices? Patient declined 08/12/2023 Do you belong to any clubs o r organizations such as sabianism groups, unions, fraternal or athletic groups, or [...] Questions 1-9 1 11/2023 [facility] [place] of Occupat ional Health - Occupational Stress [...] to sleep or slept in a senior care (including now)? Yes 08/12/2023 Education Answer Date Recorded What is the highest level of school you have completed or the highest degree you have received? 11th grade 06/03/2023 Sexually Active Control Partners Comments Not Currently Comments No Sex and Gender Information Value Date Recorded Sex Assigned at Female 09/12/2024 3:51 AM ELEVATOR CONDUCTOR Legal Sex Female 11:47 PM CDT Gender Identity Female 09/12/2024 3:51 AM ELEVATOR CONDUCTOR Sexual Orientation Not on file documented as [...] Hernandez 06/03/23 Office Visit Andra Alonso APRN, IS ARCHITECT [facility] Showing recent visits within past 182 days and meeting all other requirements Future Appointments Date Type Provider Dept 09/24/23 Appointment [facility] C[facility] Showing future appointments within next 90 days and meeting all other requirements ATOR CONDUCTOR documented in this encounter Plan of Treatment Upcoming Encounters Date Type Department Care Team (Late st Contact Info) Description 01/12/2025 8:30 AM CDT Office Visit [facility] - Family Medicine [facility] #2 [place] [address] Andra Alonso APRN, SAMEER #[address] [place] [address] 03/09/2025 1:00 PM CDT Office Visit [facility] - Obstetrics & Gynecology [facility] #2 [place] [address] Adrien Juarez MD #2 [place] [address] documented as of this encounter Visit Diagnoses [...] 19 06/20/2024 06/20/2024 06/20/2024 11:2 9 AM ELEVATOR CONDUCTOR Respiratory Rule-Out 06/20/2024 06/20/2024 024 11:37 AM ELEVATOR CONDUCTOR COVID - 19 Confirmed 06/20/2024 06/20/2024 025 12:16 AM ELEVATOR CONDUCTOR COVID - 19 07/05/2024 07/05/2024 07/05/2024 12:3 7 PM ELEVATOR CONDUCTOR COVID - 19 09/12/2024 09/12/2024 09/12/2024 4:38 AM ELEVATOR CONDUCTOR Assessment Noted Time PHQ-9 Depression Total Score: 1 08/12/19 24 8:11 AM ELEVATOR CONDUCTOR documented as of this encounter Care Teams Route Process Administrator Relationship Specialty Start Date End Date Andra Alonso APRN, IS ARCHITECT #2 [facility] [address] [place] [phone] PCP - General Advanced Practice Nurse 06/03/23 Elodia Bowman MD #2 [facility] [address] [place] [phone] Consulting Physician Endocrinology 08/29/23 documented as of this encounter
--- OUTSIDE RECORDS SUMMARY | 2024-10-07 11:23 | XMS_ITS | Data Portability ---
Author Organization [facility] [place], [place] Address [address] [place] [address] Care Team Providers Care Cable Coverer Name Role Phone MORRISON, MARY Primary Care Provider Assessment No assessment recorded. Plan of Treatment Reminders Order Date Submit Date Provider Last Modified By Organization Details Last Modified Time Details Appointments None recorded. Lab None recorded. Referral None recorded. Procedures None recorded. Surgeries robotic assisted hysterecto my w/bilatera l salpingo-o ophorectom y (SURG) 2021 023 [facility], [address] [address], [place], [address], 3 14:18:42 Imaging None recorded. Medication Orders [...] t Abnor mal: Yes Resul ting Lab: [facility] [address] [facility] [address] Tel: CULTU RE ----- ----- ----- --- [...] seen No organ isms seen Not Available [facility] (Lab) [address], [place], [address], 10/11/2022 11:16:13 Result Notes None recorded. Procedures Surgical History Date Name Laterality Status Provider Name and Address Organization Details Recorded Time 08/08/19 23 ROBOTIC ASSISTED HYSTERECTOMY W/BILATERAL SALPINGO-OOPHORE CTOMY (SURG) completed Otilia Estrella [facility] 08/09/2022 10:30:14 07/11/19 21 LAPAROSCOPY, DIAGNOSTIC (SURG) completed [facility] 08/22/2020 13:18:03 07/11/19 21 LAPAROSCOPY, DIAGNOSTIC (SURG) completed [facility] 08/13/2020 22:40:29 01/26/20 20 Date of Last Pap Smear completed Leisa Kenyon [facility] 01/04/2021 10:53:12 07/28/19 12 Tubal Ligation [facility] 01/26/2020 10:22:49 07/08/19 03 procedure completed [facility] 01/26/2020 10:23:16 Imaging Results None recorded. Procedure Notes None recorded. Medical Equipment None Reported. Allergies Allergen ID Allergen Name Allergen Category Reaction Reaction Severity Criticality Documentation Date Start Date Code Code System Note Provider Name and Address Organization Details Recorded Time 1381 amoxicill in medicatio n Not available Not available Not available 01/26/2020 723 RxNorm Dulce Lopez [facility] 0 10:19:24 Medications Name Sig [...] Updated DateTime 06/11/2022 172.72 cm 28.9 kg/m2 13206.55 g 122 mm[Hg] 78 mm[Hg] [facility] 2 10:40:48 Date Recorded Body height Body mass index (BMI) Body weight Systolic blood pressure Diastolic blood pressure Provider Name and Address Organization Details Last Updated DateTime 07/30/2022 172.72 cm 28.6 kg/m2 67611.37 g 130 mm[Hg] 78 mm[Hg] [facility] 3 17:03:35 Date Recorded Body height Body mass index (BMI) Body weight Systolic blood pressure Diastolic blood pressure Provider Name and Address Organization Details Last Updated DateTime 08/16/2022 172.72 cm 28.1 kg/m2 90091.59 g 126 mm[Hg] 80 mm[Hg] [facility] 3 10:52:46 Date Recorded Body height Body mass index (BMI) Body weight Systolic blood pressure Diastolic blood pressure Provider Name and Address Organization Details Last Updated DateTime 10/08/2022 172.72 cm 29.3 kg/m2 61900.33 g 99 mm[Hg] 64 mm[Hg] Leisa Chantale [facility] 3 13:04:58 Social History Question Answer Notes LastModified by Organizat ion Details LastModified Time Tobacco Smoking Status Current Every Day Smoker Dulce Lopez nella [facility] 01/26/2020 10:22:00 What Is Your Level [...] Condition Response Autoimmune disease Y Other Y GI Problems Y Endometriosis Y Anemia Y Gynecological History Statement/Question Response Date of Last Pap Smear 01/26/2020 Current Control Method Hysterectom y 13 Date of LMP 01/16/2020 Obstetrics History GPAL:G 2 P 2 0 0 2 Type Value Full Term 2 Living 2 Total 2 Past Encounters Encounter ID Performer Location Encounter Start Date Encounter Closed Date Diagnosis/Indication Diagnosis SNOMED-CT Code Diagnosis ICD10 Code Diagnosis Note [id number] Jennifer Ramírez [address] [address] 01/26/2020 10:15:47 01/26/2020 11:32:54 Abnormal uterine bleeding 2466648877 9100 N93.9 The patient and I discussed [...] one in over a year. Enlarged uterus 07454625 4 N85.2 U/S and labs. See note under abnormal bleeding Constipati on alternates with diarrhea 470699045 K59.00 R19.7 This has been going on for years. Pt has never had a GI evaluation . Will send pt case to [facility] and cap sewer to schedule. Pt will call us to check the status of her referral if she has not heard from either us or a GI office in 1 week. [id number] Toya Daley [facility] [address],[facility] [place] [address] 02/01/2020 12:10:17 02/01/2020 12:47:48 Abnormal uterine bleeding [id number] 9100 N93.9 N85.2 [id number] David Meza MD [facility] [address] [address] 02/09/2020 11:21:42 02/09/2020 13:21:27 Pelvic and perineal pain 791072605 R10.2 This patient is a 29-year-ol d [...] her back for informed consent process. Menorrhagia 938869378 N9 2.0 [id number] David Meza MD [facility] [address],[facility] [place] [address] 07/12/2020 09:07:49 07/12/2020 09:14:19 [id number] David Meza MD [facility] [address] [address] 07/20/2020 16:35:03 07/20/2020 17:20:45 Endometriosis of pelvis 48958839 N80.3 this patient is a 29-year-ol d [...] Her incisions are clean dry and intact. [id number] David Meza MD [facility] [address],[place] [address] 12/22/2020 09:22:59 12/22/2020 10:04:24 Pain in pelvis 65722309 R10.2 [id number] David Meza MD [facility] [address],[place] [address] 06/11/2022 10:08:27 06/12/2022 15:08:48 Endometriosis of pelvis 03849443 N80.30 Pain in pelvis 17964802 R10.2 this patient is a 31-year-ol d [...] and her activities of daily living. Menorrhagia 090116009 N9 2.0 [id number] David Meza MD [facility] [address] [address] 07/30/2022 16:51:59 07/31/2022 14:51:42 Pain in pelvis 68091213 R10.2 Endometrio sis of pelvis 56717957 N80.30 this patient is a 32-year-ol d female with severe pelvic pain endometrio sis. We have agreed to perform total laparoscop ic hysterecto my bilateral salpingo-o ophorectom y. She understand s the risks, benefits, and alternativ es. She has completed the informed consent process and is ready to proceed. [id number] David Meza MD [place] [address] [address] 08/16/2022 10:24:48 08/16/2022 11:31:14 Menopause 596892983 Z78.0 Postoperative care 39331 9007 Z48.89 this patient is a 32-year-ol d femal who presents postoperat dayanna follow-up. She is recovering normally. She has and normal appearing incisions. They are clean dry and intact. She has been having some menopausal symptoms. We started hormone replacemen t therapy today. She will follow-up as needed. [id number] David Meza MD [facility] [address] [address] 10/08/2022 12:25:35 10/09/2022 10:04:58 Pelvic abscess 167177537 K65.1 This patient is a 32-year-ol d [...] the vaginal cuff, cannot rule out your Denise and urinary tract injury. She states that [...] Parr Member ID Guarantor Name 06/11/2022 1 [facility] - DOS ON OR AFTER 21 (MEDICAID REPLACEMENT - HMO) Rafita Maldonado [id number] Rafita Sinkdesiree 07/30/2022 1 [facility] - DOS ON OR AFTER 21 (MEDICAID REPLACEMENT - HMO) Rafita Sinkdesiree [id number] Rafita Sinks 08/16/2022 1 [facility] - DOS ON OR AFTER 21 (MEDICAID REPLACEMENT - HMO) Rafita Sinkdesiree [id number] Rafita Sinkdesiree 10/08/2022 1 [facility] - DOS ON OR AFTER 21 (MEDICAID REPLACEMENT - HMO) Rafita Maldonado [id number] Rafita Maldonado Notes Date Note Type Note [...] a cure. We spent over 40 minutes [id number]. Discussed the treatment options for endometriosis. We [...] living. David Meza MD [address], [place], [address], [facility] 06/11/2022 20:24:53 07/30/2022 text/html This patient [...] infection. David Meza MD [address], [place], [address], [facility] 07/30/2022 22:45:48 08/16/2022 text/html this patient is a 32-year-old femal who presents postoperative follow-up. She is recovering normally. She has and normal appearing incisions. They are clean dry and intact. She has been having some menopausal symptoms. We started hormone replacement therapy today. She will follow-up as needed. David Meza MD [address], [place], [address], [facility] 08/16/2022 11:30:08 10/08/2022 text/html This patient [...] the vaginal cuff, cannot rule out your Denise and urinary tract injury. She states that her bladder is filling and emptying regularly. I asked her to immediately go to the emergency department for admission with evaluation and in the operating room with exam under anesthesia, incision and drainage and drain placement. She was asked to go immediately. She understands there is risk of evisceration. Spent over 40 minutes [id number]. More than 50% was counseling. David Meza MD [address], [place], [address], [facility] 10/08/2022 21:00:15 OBGyn Episode Ob Episode Information Episode Created Date Number of Fetuses Patient Bloodtype Patient rh Status Prepregnancy Weight lbs Domestic Partner Domestic Partner Phone Father Name R And D Lab Technician Status 01/26/20 20 1 CLOSED Fetus Data [...] Domestic Partner Domestic Partner Phone Father Name R And D Lab Technician Status 01/26/20 20 1 CLOSED Fetus Data [...]
--- OUTSIDE RECORDS SUMMARY | 2024-10-07 11:23 | XMS_ITS | Encounter Summary ---
Author Organization [facility] Address [address] [place] [address] Phone Care Team Providers Care Economics Lecturer Name Role Phone Andra Alonso APRN, CNP Primary Care Provid er Elodia Bowamn MD Unavailable Reason for Visit * Reason Comments Medication Refill Encounter Details Date Type Department Care Team (Late st Contact Info) Description 07/27/2023 Refill [facility] - Family Medicine [facility] [address] [place] [address] Andra Alonso APRN, CNP [address] [address] Medication Refill Social History Tobacco [...] Sex Assigned at Female 09/12/2024 3:51 AM END MAKER Legal Sex Female 11:47 PM CDT Gender Identity Female 09/12/2024 3:51 AM END MAKER Sexual Orientation Not on file documented as of this encounter Miscellaneous Notes * Telephone Encounter - Melisa Hassan RN - 07/27/2023 11:31 AM END MAKER Upcoming OV 07-30-23 Medication failed the protocol, [...] Dept 07/02/23 Office Visit Andra Alonso APRN, CNP [facility] [place] 06/03/23 Office Visit Andra Alonso APRN, CNP [facility] Showing recent visits within past 182 days and meeting all other requirements Future Appointments Date Type Provider Dept 07/30/23 Appointment Andra Alonso APRN, SAME[facility] Showing future appointments within next 90 days and meeting all other requirements MAKER documented in this encounter Plan of Treatment Upcoming Encounters Date Type Department Care Team (Late st Contact Info) Description 01/12/2025 8:30 AM CDT Office Visit [facility] - Family Medicine - [facility] [address] [place] [address] Andra Alonso APRN, CANDY ATTENDANT #[address] [address] 03/09/2025 1:00 PM CDT Office Visit [facility] - Obstetrics & Gynecology [facility] [address] [facility] [place] [place] [address] Adrien Juarez MD [address] [place] [address] documented as of this encounter Visit Diagnoses [...] 19 06/20/2024 06/20/2024 06/20/2024 11:2 9 AM END MAKER Respiratory Rule-Out 06/20/2024 06/20/2024 024 11:37 AM END MAKER COVID - 19 Confirmed 06/20/2024 06/20/2024 025 12:16 AM END MAKER COVID - 19 07/05/2024 07/05/2024 07/05/2024 12:3 7 PM END MAKER COVID - 19 09/12/2024 09/12/2024 09/12/2024 4:38 AM END MAKER Assessment Noted Time PHQ-9 Depression Total Score: 19 023 11:00 AM END MAKER documented as of this encounter Care Teams Economics Lecturer Relationship Specialty Start Date End Date Andra Alonso APRN, CANDY ATTENDANT #[address] [address] PCP - General Advanced Practice Nurse 06/03/23 Elodia Bowman MD #[address] [address] Consulting Physician Endocrinology 08/29/23 documented as of this encounter
[2024-10-07] MEDS: ALBUTEROL SULFATE NEB 2.5 MG/3 ML INH INHALATION (11:34)
[2024-10-07 11:50] LABS: EDCOVIDSCREEN Negative (Negative); EDINFLUASCREEN Negative (Negative); EDINFLUBSCREEN Negative (Negative)
== END 2024-10-07 12:25 | disposition home or self-care (01) ==
PROVIDERS: Emergency Provider Nurse Practitioner Family
DX: J40 Bronchitis, not specified as acute or chronic (principal); Z20.822 Contact with and (suspected) exposure to COVID-19; F17.210 Nicotine dependence, cigarettes, uncomplicated; F17.290 Nicotine dependence, other tobacco product, uncomplicated; F41.9 Anxiety disorder, unspecified; F32.A Depression, unspecified
CPT/HCPCS: 71046; 87426; 87804; 99213; G0463